=== PATIENT | female | born 1945 | race Caucasian/White ===

== ENCOUNTER → 2018-03-26 08:29 | Outpatient (CLI) | payer MEDICARE, OTHER, SELFPAY ==
[2018-03-26 09:44] LABS: Calcium 8.7 mg/dL (8.4-10.2); Cholesterol 170 mg/dL (140-199); Estimated Glomerular Filt Rate > 60.0 mL/min (>60); Glucose 100 mg/dL (80-110); HDL Cholesterol 54 mg/dL (40-60); HEMOLYSIS < 15 (0-50); LDL Cholesterol Calculated 101 mg/dL (<100); Potassium 4.3 mmol/L (3.4-5.1); Sodium 143 mmol/L (137-145); Triglycerides 76 mg/dL (35-150)
[2018-03-26 10:05] LABS: Thyroid Stimulating Hormone 0.57 uIU/mL (0.47-4.68)
== END ==
PROVIDERS: PCP Physician Assistant; Visit Provider Physician Assistant
DX: I10 Essential (primary) hypertension (principal); E03.9 Hypothyroidism, unspecified; E78.5 Hyperlipidemia, unspecified
CPT/HCPCS: 36415; 80048; 80061; 84443

== ENCOUNTER → 2018-09-07 07:36 | Outpatient (CLI) | payer MEDICARE, OTHER, SELFPAY ==
[2018-09-07 09:15] LABS: Alanine Aminotransferase 34 IU/L (9-52); BUN Creatinine Ratio 26.7 (6-22); Blood Urea Nitrogen 16 mg/dL (7-17); Calcium 8.8 mg/dL (8.4-10.2); Carbon Dioxide 27 mmol/L (22-32); Chloride 107 mmol/L (98-107); Cholesterol 204 mg/dL (140-199); Estimated Glomerular Filt Rate > 60.0 mL/min (>60); Glucose 100 mg/dL (80-110); HDL Cholesterol 53 mg/dL (40-60); HEMOLYSIS < 15 (0-50); LDL Cholesterol Calculated 128 mg/dL (<100); Potassium 3.8 mmol/L (3.4-5.1); Sodium 146 mmol/L (137-145); Triglycerides 116 mg/dL (35-150)
== END ==
PROVIDERS: Family Provider Physician Assistant; PCP Physician Assistant; Visit Provider Internal Medicine Interventional Cardiology
DX: E78.5 Hyperlipidemia, unspecified (principal)
CPT/HCPCS: 36415; 80048; 80061; 84460

== ENCOUNTER → 2018-09-09 12:50 | Outpatient (CLI) | payer MEDICARE, OTHER, SELFPAY | PROVIDERS: Family Provider Physician Assistant; PCP Physician Assistant; Visit Provider Physician Assistant | DX: Z13.88 Encounter for screening for disorder due to exposure to contaminants (principal) | CPT/HCPCS: 36415; 83655 ==

== ENCOUNTER → 2018-12-25 14:48 | Outpatient (CLI) | payer MEDICARE, OTHER, SELFPAY ==
--- NOTE | 2018-12-25 | DI.MRI.S_ITS ---
PROCEDURE: MR KNEE LT WO CON INDICATIONS: LATERAL MENISCUS TEAR. LATERAL LEFT KNEE PAIN TECHNIQUE: Noncontrast sagittal PD fast spin echo and T2 fast spin echo with fat saturation, sagittal 3-D FLASH with fat saturation; coronal T1 spin echo and PD fast spin echo with fat saturation, and axial PD fast spin echo with fat saturation through the knee. COMPARISON: None. FINDINGS: Image quality: Excellent. Menisci: Medial meniscal tear involving the undersurface of the posterior horn and body. There is partial extrusion. Truncation of the free margin of the body of the lateral meniscus. Cruciate ligaments: The anterior and posterior cruciate ligaments appear intact. Medial structures: The medial collateral ligament appears intact. The posterior oblique ligament, semimembranosus tendon insertions, oblique popliteal ligament, and meniscocapsular junction appear intact. Visualized portions of the pes anserinus tendons appear normal. No abnormal bursal fluid. Lateral structures: Age indeterminate thickening and intrasubstance signal change of the proximal lateral collateral ligament. The long and short heads of the biceps femoris tendon appear intact. The popliteus tendon appears normal; the popliteofibular ligament appears intact. The posterosuperior and anteroinferior popliteomeniscal fascicles appear intact. The arcuate and fabellofibular ligaments appear intact, on either side of the lateral inferior geniculate artery. Iliotibial band appears normal. Anterior structures: There is prepatellar and superficial infrapatellar subcutaneous edema. The quadriceps and patellar tendons appear intact. Patellar alignment is normal. No femoral trochlear dysplasia or ventral trochlear prominence. No edema in the infrapatellar fat pad. Bones and cartilage: No focal marrow contusion or discrete low signal fracture line. Within the medial compartment, low grade diffuse partial-thickness loss surface fraying of the femoral and tibial articular cartilage. Within the lateral compartment, there is intrasubstance change of the tibial cartilage without definite focal defect. Within the patellofemoral compartment, diffuse partial-thickness loss of the patellar and femoral trochlear cartilage with minimal underlying subchondral marrow signal changes of the lateral patellar facet. Joint space: Large joint effusion. Partially ruptured Huerta's cyst cyst is present measuring approximately 5 cm in a cephalocaudad dimension. There is also 8mm low signal loose body seen within the Huerta cyst on image 18 series 6. IMPRESSION: Medial meniscal tear involving undersurface of the posterior horn and body with partial extrusion. Prominent truncation of the free margin of the body of the lateral meniscus. Tricompartmental joint degeneration. Large joint effusion. Partially ruptured Huerta's cyst, which contains a subcentimeter loose body. Dictated by: Sen Zarco M.D. on 12/25/2018 at 15:57 Approved by: Sen Zarco M.D. on 12/25/2018 at 16:07
== END ==
PROVIDERS: PCP Physician Assistant; Visit Provider Orthopaedic Surgery
DX: M25.562 Pain in left knee (principal); S83.242A Other tear of medial meniscus, current injury, left knee, initial encounter; M17.12 Unilateral primary osteoarthritis, left knee; M71.22 Synovial cyst of popliteal space [Baker], left knee; M25.462 Effusion, left knee
CPT/HCPCS: 73721

== ENCOUNTER 2019-07-24 00:20 | Emergency (ER) | payer MEDICARE, OTHER, SELFPAY ==
--- NOTE | 2019-07-24 00:30 | DI.RAD.S_ITS ---
PROCEDURE: XR CHEST 1V INDICATIONS: Chest pain TECHNIQUE: One view of the chest was acquired. COMPARISON: None. FINDINGS: Surgical changes and devices: None. Lungs and pleura: Lungs are clear. No pleural effusions or pneumothorax. Mediastinum: Mediastinal contours appear normal. Heart size is normal. Bones and chest wall: No suspicious bony lesions. Overlying soft tissues appear unremarkable. IMPRESSION: Chest without acute cardiopulmonary abnormalities. Findings are concordant with the emergency room physician's preliminary report. Dictated by: Jorge Troy M.D. on 07/24/2019 at 5:49 Approved by: Jorge Troy M.D. on 07/24/2019 at 5:50
--- NOTE | 2019-07-24 00:31 | ED_ITS ---
HPI - General Adult General Chief complaint: Chest Pain Stated complaint: thinks she had heartattack Time Seen by Provider: 07/24/19 00:23 Source: patient Mode of arrival: Ambulatory Limitations: no limitations History of Present Illness HPI narrative: Patient is a 74-year-old female here for evaluation of left-sided chest pain and also left ear fullness. She also states that she was very anxious about her symptoms. She does have a history of anxiety. She states she had an extended preop workup today for cataract surgery. She did have her eyes dilated. Symptoms started earlier this evening. She states that she became very anxious about the symptoms concerned about her heart. She has never had a heart attack before. Stated that she had a normal stress echo approximately 4 years ago. Does have a history of high blood pressure and high cholesterol. Has not done anything for symptoms prior to arrival Related Data Home Medications Medication Instructions Recorded Confirmed venlafaxine [Effexor XR] 75 mg PO QDAY #0 11/20/16 atorvastatin [Lipitor] #0 12/29/17 Allergies Allergy/AdvReac Type Severity Reaction Status Date / Time No Known Drug Allergies Allergy Unknown Unverified 02/11/18 12:33 CAT DANDER Allergy Unknown Uncoded 02/11/18 12:33 DUST Allergy Unknown Uncoded 02/11/18 12:33 Review of Systems Constitutional Constitutional: Denies fever(s) and Denies headache(s) ENT Ears, Nose, Mouth, and Throat: Denies vertigo and Denies headache(s) Comments: Left ear fullness Cardiovascular Cardiovascular: Denies dyspnea Comments: Chest pressure Respiratory Respiratory: Denies dyspnea Gastrointestinal Gastrointestinal: Denies abdominal pain, Denies diarrhea, Denies nausea and De nies vomiting Genitourinary Genitourinary: Denies dysuria Musculoskeletal Musculoskeletal: Denies myalgias and Denies arthralgias Integumentary/Breasts Skin/Breast: Denies rash Neurologic Neurologic: Denies confusion, Denies vertigo and Denies headache(s) Psychiatric Psychiatric: Reports anxiety, Denies confusion and Reports panic attacks Hematologic/Lymphatic Hematologic/Lymphatic: Denies easy bleeding and Denies easy bruising [facility] Medical History Anxiety (Acute) Hyperlipidemia (Acute) Hypertension (Acute) Surgical History (Updated 03/03/18 @ 06:07 by Conversion Provider) Status post delivery Status post delivery Status post hysterectomy Family History (Updated 01/03/18 @ 00:00 by Conversion Provider) Brother Age: 66 Melanoma Father Hypertension High cholesterol Melanoma Social History Smoking Status: Never smoker Family History (Updated 01/03/18 @ 00:00 by Conversion Provider) Brother Age: 66 Melanoma Father Hypertension High cholesterol Melanoma Social History Smoking Status: Never smoker Exam Initial Vital Signs Initial Vital Signs: Vital Signs Temperature 98.2 F 07/24/19 00:38 Pulse Rate 70 07/24/19 00:38 Respiratory Rate 16 07/24/19 00:38 Blood Pressure 183/106 H 07/24/19 00:38 Pulse Oximetry 94 07/24/19 00:38 Const General: cooperative, healthy appearing, comfortable, well developed, well groomed and No acute distress Orientation: alert, awake and oriented x3 HENMT Head: normal to inspection and normocephalic Ears: TM's normal bilaterally Nose: external nose normal Resp Effort & Inspection: normal respiratory effort Auscultation: clear to auscultation bilaterally Cardio Rate: regular rate Rhythm: regular rhythm Pulses: radial pulses present GI Inspection: non-distended Palpation: soft and No firm Skin Lesions: no lesions Rashes: no rashes Neuro General: alert, awake and oriented x3 Cognition: normal cognition Speech: speech normal Extrem General: normal to inspection and capillary refill normal Psych Appearance: grossly normal and well kempt Scores GCS [place] coma scale eye opening: Spontaneous [place] coma scale verbal response: Orientated Mirna coma scale motor response: Obey commands [place] coma scale total score: 15 HEART Score Heart Score history: Slightly Suspicious Heart Score EKG: Non-Specific repolarization disturbance Heart Score Age: > or = 65 years old Heart Score risk factors: 1-2 risk factors Heart Score troponin: < or = to normal limit Heart Score Total: 4 Course Orders Ordered: ED Orders 07/24/19 00:29 EKG-12 Lead Stat 07/24/19 00:30 XR chest 1V Stat 07/24/19 00:35 Basic Metabolic Panel Stat Complete Blood Count AUTO DIFF Stat Lipase Stat Partial Thromboplastin Time Stat Prothrombin Time INR Stat Troponin I Stat 07/24/19 02:26 Troponin I Stat Vital Signs Vital signs: Vital Signs - 8 hr 07/24/19 00:38 07/24/19 01:00 07/24/19 01:45 Temperature 98.2 F Pulse Rate 70 68 70 Respiratory Rate 16 18 16 Blood Pressure 183/106 H Blood Pressure [Left Arm] 148/80 H 134/72 Pulse Oximetry 94 98 07/24/19 04:00 Temperature Pulse Rate 70 Respiratory Rate 16 Blood Pressure Blood Pressure [Left Arm] 134/63 Pulse Oximetry 99 Medical Decision Making Lab Data Lab results reviewed: Yes I reviewed the patient's lab results. Result diagrams: 07/24/19 00:35 07/24/19 00:35 Labs: Lab Results 07/24/19 07/24/19 07/24/19 Range/Units 00:35 00:35 00:35 WBC 5.5 (4.5-11.0) X10^3/uL RBC 4.47 (4.0-5.2) X10^6/uL Hgb 13.7 (12.0-16.0) g/dL Hct 40.4 (36-46) % MCV 90.4 (80-100) fL MCH 30.6 (26-34) PG MCHC 33.9 (30-36) % RDW 14.0 (11.6-14.8) % Plt Count 208 (150-400) X10^3/uL Neut % (Auto) 40.6 L (50-75) % Lymph % (Auto) 43.1 H (25-40) % Wells % (Auto) 11.8 (3-14) % Eos % (Auto) 3.1 (2-4) % Baso % (Auto) 1.4 (0-2) % Neut # (Auto) 2200 (3895-9569) /uL Lymph # (Auto) 2400 (3297-0621) /uL Wells # (Auto) 600 (0-900) /uL Eos # (Auto) 200 (0-450) /uL Baso # (Auto) 100 (0-100) /uL PT 11.0 (10.1-12.7) SECONDS INR 1.0 (0.9-1.3) APTT 34 (26.4-36.2) SECONDS Sodium 143 (137-145) mmol/L Potassium 3.8 (3.4-5.1) mmol/L Chloride 104 (98-107) mmol/L Carbon Dioxide 31 (22-32) mmol/L BUN 14 (7-17) mg/dL Creatinine 0.60 (0.52-1.04) mg/dL Estimated GFR > 60.0 (>60) mL/min BUN/Creatinine Ratio 23.3 H (6-22) Glucose 121 H (80-110) mg/dL Calcium 9.6 (8.4-10.2) mg/dL Troponin I (0.01-0.034) ng/mL Lipase 138 (23-300) U/L 07/24/19 07/24/19 Range/Units 00:35 02:26 WBC (4.5-11.0) X10^3/uL RBC (4.0-5.2) X10^6/uL Hgb (12.0-16.0) g/dL Hct (36-46) % MCV (80-100) fL MCH (26-34) PG MCHC (30-36) % RDW (11.6-14.8) % Plt Count (150-400) X10^3/uL Neut % (Auto) (50-75) % Lymph % (Auto) (25-40) % Wells % (Auto) (3-14) % Eos % (Auto) (2-4) % Baso % (Auto) (0-2) % Neut # (Auto) (4406-4989) /uL Lymph # (Auto) (7044-1755) /uL Wells # (Auto) (0-900) /uL Eos # (Auto) (0-450) /uL Baso # (Auto) (0-100) /uL PT (10.1-12.7) SECONDS INR (0.9-1.3) APTT (26.4-36.2) SECONDS Sodium (137-145) mmol/L Potassium (3.4-5.1) mmol/L Chloride (98-107) mmol/L Carbon Dioxide (22-32) mmol/L BUN (7-17) mg/dL Creatinine (0.52-1.04) mg/dL Estimated GFR (>60) mL/min BUN/Creatinine Ratio (6-22) Glucose (80-110) mg/dL Calcium (8.4-10.2) mg/dL Troponin I < 0.012 < 0.012 (0.01-0.034) ng/mL Lipase (23-300) U/L Imaging Data Chest x-ray: Attestation: I personally reviewed and interpreted this imaging study as follows: My impression: No pneumonia, normal size heart, no pneumothorax ECG Data Attestation: I personally reviewed and interpreted this ECG as follows: Prior ECG tracings: not available for review Interpretation: Sinus rhythm Normal axis Ventricular rate is [address] T wave changes MDM Narrative Medical decision making narrative: Patient does have a heart score for however has a nonspecific EKG and negative troponins x2. She had complete resolution in her symptoms after she arrived here. States she feels much calmer after arriving here. Patient does have a high suspicion that her symptoms were anxiety related. I agree with this as well. Chest x-ray is unremarkable. When the patient contact her primary doctor and also her sales representative [employer] for follow-up. She was given return precautions and follow-up instructions. She expressed understanding and agreement with plan. Discharge Plan Departure Patient Disposition: Home Clinical Impression: Atypical chest pain Discharge Date/Time: 07/24/19 04:01 Instructions: DI for Atypical Chest Pain Activity Restrictions/Additional Instructions: On Friday contact your sales representative [employer] to discuss the recommendation from Ophthalmology to have carotid Dopplers. I also recommend you discuss the indications for having a stress test. Continue all of your medications as directed. Return to the emergency department for any new or worsening symptoms Prescriptions: No Action venlafaxine [Effexor XR] 75 MG capsule,extended release 24hr 75 mg PO QDAY Qty: 0 RF: 0 atorvastatin [Lipitor] 20 MG tablet Qty: 0 RF: 0 Referrals: Ana Lilia Carrera PA-C [Primary Care Provider] -
[2019-07-24 00:38] VITALS: BP 183/106; PULSE 70; RESP 16; TEMP 36.8; O2SAT 94; BMI 28.3
[2019-07-24 00:45] LABS: Add Manual Diff / Slide Review NO; Basophils Absolute Auto 100 /uL (0-100); Basophils Percent Auto 1.4 % (0-2); Eosinophils Absolute Auto 200 /uL (0-450); Eosinophils Percent Auto 3.1 % (2-4); Hematocrit 40.4 % (36-46); Hemoglobin 13.7 g/dL (12.0-16.0); Lymphocytes Absolute Auto 2400 /uL (1100-4500); Lymphocytes Percent Auto 43.1 % (25-40); Mean Corpuscular HGB Conc 33.9 % (30-36); Mean Corpuscular Hemoglobin 30.6 PG (26-34); Mean Corpuscular Volume 90.4 fL (80-100); Monocytes Absolute Auto 600 /uL (0-900); Monocytes Percent Auto 11.8 % (3-14); Neutrophils Absolute Auto 2200 /uL (1500-7000); Neutrophils Percent Auto 40.6 % (50-75); Platelet Count 208 X10^3/uL (150-400); Red Blood Cell Count 4.47 X10^6/uL (4.0-5.2); White Blood Cell Count 5.5 X10^3/uL (4.5-11.0)
[2019-07-24 00:51] LABS: PTT Partial Thromboplastin Tim 34 SECONDS (26.4-36.2)
[2019-07-24 00:53] LABS: BUN Creatinine Ratio 23.3 (6-22); Blood Urea Nitrogen 14 mg/dL (7-17); Calcium 9.6 mg/dL (8.4-10.2); Carbon Dioxide 31 mmol/L (22-32); Chloride 104 mmol/L (98-107); Estimated Glomerular Filt Rate > 60.0 mL/min (>60); Glucose 121 mg/dL (80-110); HEMOLYSIS < 15 (0-50); Lipase 138 U/L (23-300); Potassium 3.8 mmol/L (3.4-5.1); Sodium 143 mmol/L (137-145)
[2019-07-24 01:00] VITALS: BP 148/80; PULSE 68; RESP 18; O2SAT 98
[2019-07-24 01:16] LABS: Troponin I < 0.012 ng/mL (0.01-0.034)
[2019-07-24 01:45] VITALS: BP 134/72; PULSE 70; RESP 16
[2019-07-24 02:56] LABS: Troponin I < 0.012 ng/mL (0.01-0.034)
[2019-07-24 04:00] VITALS: BP 134/63; PULSE 70; RESP 16; O2SAT 99
== END 2019-07-24 04:01 | disposition home or self-care (01) ==
PROVIDERS: Emergency Provider Emergency Medicine; PCP Physician Assistant
DX: R07.89 Other chest pain (principal)
CPT/HCPCS: 36415; 36591; 71045; 80048; 83690; 84484; 85025; 85610; 85730; 93005; 99283; 99285

== ENCOUNTER 2019-08-04 07:51 | Day surgery (SDC) | payer MEDICARE, OTHER, SELFPAY ==
--- NOTE | 2019-07-31 13:39 | PM.PREOP ---
Pre-operative Note Interval Note History & Physical reviewed/Exam performed by Physician: Yes Changes to H&P: No
--- NOTE | 2019-07-31 13:39 | PM.OP.1 ---
Operative Date/Time/Diagnoses Date of procedure: 08/04/19 Time of procedure: 08:45 Procedure & Clinicians Procedure: Preoperative diagnoses: 1. Right nuclear sclerotic and cortical cataract. 2. Aortic aneurysm 3. Hypertension 4. Previous retinal hemorrhages. Postoperative diagnoses: 1. Cataract removed by phacoemulsification with placement of posterior chamber intraocular lens. Procedure: Phacoemulsification with posterior chamber intraocular lens implant Surgeon: Veronica Lee MD Complications: None Specimen: None Implant: ZCBOO+23.5 Blood loss: None Anesthesia: Retrobulbar with monitored standby Description of procedure: Patient presents with a complaint of decreased vision due to cataract which is affecting activities of daily living. She is having trouble driving at night and seeing street signs. Her medical conditions are currently stable. The patient wants surgery to improve vision. The patient was taken to the operating room and given IV sedation. A retrobulbar block consisting of 6 cc of 2% xylocaine without epinephrine mixed half and half with 0.5% Marcaine with 1 cc of hyaluronidase added is placed between the medial and lateral 1/3 of the inferior orbital rim. The eye is manually massaged for 30 sec, prepped using Betadine solution, and draped in the usual sterile fashion. Temporal approach was made, a 1 mm side-port incision was made 90? from the proposed clear corneal incision position. Phenylephrine 1.5% mixed with 1% xylocaine 0.2 cc was placed into the anterior chamber. Viscoat followed by Ruddyon was then placed. A 2.6 mm clear incision with a 2.6 mm blade was placed. A 360 degree capsulorrhexis style capsulotomy was then performed with a cystitome needle on a Healon. Hydrodelineation and hydrodissection were performed. The phacoemulsification unit is introduced, and sculpting notice used to groove the central lens. It is then removed in chopping mode. Epi nucleus is removed with epinuclear mode and irrigation aspiration was used to remove the peripheral cortex. The posterior capsule is polished. The intraocular lens is selected, inspected, power confirmed, and placed in the posterior chamber. The wound was stromally hydrated and tested for leaks, there was none and it was left sutureless. Vigamox 0.1 cc was placed into the anterior chamber. Kenalog 0.2 cc was placed in the superior subconjunctival space. A drop of antibiotic and was placed and the eye was patched and shielded. The patient was stable and returned to the recovery room in excellent condition. Dictated by: Veronica Lee MD Copy to: [facility]
[2019-08-04 08:10] VITALS: BP 139/76; PULSE 68; RESP 16; TEMP 36.3; O2SAT 96
[2019-08-04 08:12] VITALS: BMI 28.5
[2019-08-04] MEDS: PROPARACAINE 0.5% OPHTH SOL 2 DROPS EYE-OP (08:19)
[2019-08-04] MEDS: CATARACT EYE COMPOUND (10 DROPS/SYRINGE) 3 DROPS EYE-OP (08:20)
[2019-08-04] MEDS: PHENYLEPHRINE/LIDOCAINE VIAL (OR) 0.2 ML EYE-OP (09:10)
[2019-08-04] MEDS: MOXIFLOXACIN INJ 5 MG/ML VIAL EYE-OP (09:11)
[2019-08-04] MEDS: CHONDROIDTIN/SOD HYALURONATE 1.05 ML SYRINGE INTRAOCULA (09:12)
[2019-08-04] MEDS: TRIAMCINOLONE 50 MG/5 ML VIAL INJ (09:12)
[2019-08-04] MEDS: HYALURONATE SODIUM 10 MG/ML SYRINGE INJ (09:13)
[2019-08-04] MEDS: BALANCED SALT IRRIG SOLN NO.2 15 ML IRR (09:13)
[2019-08-04] MEDS: BALANCED SALT IRRIG SOLN NO.2 500 ML, EPINEPHrine 1 MG IRR (09:14)
[2019-08-04] MEDS: LIDOCAINE 2% 4 ML, BUPIVACAINE 0.5% (PF) 4 ML, HYALURONIDASE 150 UNIT INJ (09:15)
[2019-08-04] MEDS: ERYTHROMYCIN OPHTH 1 GM OINT 1 APPLIC EYE-RIGHT (09:17)
[2019-08-04 09:32] VITALS: BP 136/86; PULSE 62; RESP 16; TEMP 36.3; O2SAT 94
== END 2019-08-04 09:46 | disposition home or self-care (01) ==
LOC: OR 07:56
PROVIDERS: Family Provider Physician Assistant; PCP Physician Assistant; Visit Provider Ophthalmology
PROC: (CPT 66984; principal; 2019-08-04 08:45)
DX: H25.811 Combined forms of age-related cataract, right eye (principal); I10 Essential (primary) hypertension
CPT/HCPCS: 66984; J0171; J2704; J3301; J3470

== ENCOUNTER 2019-08-25 07:58 | Day surgery (SDC) | payer MEDICARE, OTHER, SELFPAY ==
--- NOTE | 2019-08-24 18:53 | PM.PREOP ---
Pre-operative Note Interval Note History & Physical reviewed/Exam performed by Physician: Yes Changes to H&P: No
--- NOTE | 2019-08-24 18:54 | PM.OP.1 ---
Operative Date/Time/Diagnoses Date of procedure: 08/25/19 Time of procedure: 08:45 Procedure & Clinicians Procedure: Preoperative diagnoses: 1. Left nuclear sclerotic and cortical cataract. 2. Aortic valve regurgitation. 3. Aortic aneurysm history. 4. Hypertension 5. Hypothyroidism. Postoperative diagnoses: 1. Cataract removed by phacoemulsification with placement of posterior chamber intraocular lens. Procedure: Phacoemulsification with posterior chamber intraocular lens implant Surgeon: Veronica Lee MD Complications: None Specimen: None Implant: ZCBOO+24.0 Blood loss: None Anesthesia: Retrobulbar with monitored standby Description of procedure: Patient presents with a complaint of decreased vision due to cataract which is affecting activities of daily living. She continues to have trouble with night driving and seeing street signs. The patient wants surgery to improve vision. The patient was taken to the operating room and given IV sedation. A retrobulbar block consisting of 6 cc of 2% xylocaine without epinephrine mixed half and half with 0.5% Marcaine with 1 cc of hyaluronidase added is placed between the medial and lateral 1/3 of the inferior orbital rim. The eye is manually massaged for 30 sec, prepped using Betadine solution, and draped in the usual sterile fashion. She had mild discomfort with the lid speculum and therefore lidocaine jelly was placed on the surface of the eye and procedure otherwise continued as planned. Temporal approach was made, a 1 mm side-port incision was made 90? from the proposed clear corneal incision position. Phenylephrine 1.5% mixed with 1% xylocaine 0.2 cc was placed into the anterior chamber. Viscoat followed by Kylee was then placed. A 2.6 mm clear incision with a 2.6 mm blade was placed. A 360 degree capsulorrhexis style capsulotomy was then performed with a cystitome needle on a Healon. Hydrodelineation and hydrodissection were performed. The phacoemulsification unit is introduced, and sculpting notice used to groove the central lens. It is then removed in chopping mode. Epi nucleus is removed with epinuclear mode and irrigation aspiration was used to remove the peripheral cortex. The posterior capsule is polished. The intraocular lens is selected, inspected, power confirmed, and placed in the posterior chamber. The wound was stromally hydrated and tested for leaks, there was none and it was left sutureless. Vigamox 0.1 cc was placed into the anterior chamber. Kenalog 0.2 cc was placed in the superior subconjunctival space. A drop of antibiotic and was placed and the eye was patched and shielded. The patient was stable and returned to the recovery room in excellent condition. Dictated by: Veronica Lee MD Copy to: [facility]
[2019-08-25] MEDS: PROPARACAINE 0.5% OPHTH SOL 2 DROPS EYE-OP (08:16)
[2019-08-25] MEDS: CATARACT EYE COMPOUND (10 DROPS/SYRINGE) 3 DROPS EYE-OP (08:18)
[2019-08-25 08:21] VITALS: BP 138/82; PULSE 681; RESP 15; TEMP 36.7; O2SAT 98; BMI 29.2
--- NOTE | 2019-08-25 08:34 | SUR.OPER ---
Supine on eye stretcher, head on extension cradle secured with tape. Arms tucked at sides with blanket. Pillow under knees.
[2019-08-25] MEDS: LIDOCAINE JELLY 2% 5 ML 1 APPLIC TOP (09:24)
[2019-08-25] MEDS: PHENYLEPHRINE/LIDOCAINE VIAL (OR) 0.2 ML EYE-OP (09:25)
[2019-08-25] MEDS: LIDOCAINE 2% 4 ML, BUPIVACAINE 0.5% (PF) 4 ML, HYALURONIDASE 150 UNIT INJ (09:26)
[2019-08-25] MEDS: TRIAMCINOLONE 50 MG/5 ML VIAL INJ (09:28)
[2019-08-25] MEDS: MOXIFLOXACIN INJ 5 MG/ML VIAL EYE-OP (09:28)
[2019-08-25] MEDS: CHONDROIDTIN/SOD HYALURONATE 1.05 ML SYRINGE INTRAOCULA (09:29)
[2019-08-25] MEDS: HYALURONATE SODIUM 10 MG/ML SYRINGE INJ (09:29)
[2019-08-25] MEDS: BALANCED SALT IRRIG SOLN NO.2 500 ML, EPINEPHrine 1 MG IRR (09:30)
[2019-08-25 09:45] VITALS: BP 143/83; PULSE 69; RESP 15; TEMP 36.2; O2SAT 93
== END 2019-08-25 10:00 | disposition home or self-care (01) ==
PROVIDERS: Family Provider Physician Assistant; PCP Physician Assistant; Visit Provider Ophthalmology
PROC: (CPT 66984; principal; 2019-08-25 08:45)
DX: H25.812 Combined forms of age-related cataract, left eye (principal); I10 Essential (primary) hypertension; E03.9 Hypothyroidism, unspecified
CPT/HCPCS: 66984; J0171; J3010; J3301; J3470

== ENCOUNTER → 2019-09-03 14:45 | Outpatient (CLI) | payer MEDICARE, OTHER, SELFPAY ==
--- NOTE | 2019-09-03 | DI.ECHO.S_ITS ---
[facility]---------+ [facility] +---------+ : : [address] : : : : [id number] : : : : Phone: [phone] Echocardiogram Report + + :Name: KAUSHAL QUINN Study Date: 09/03/2019 Height: 63 in : :[facility] Weight: 167 lb : : Gender: Female BSA: 1.8 m2 : :: 1945 Age: 74 yrs BP: 158/80 mmHg: :Reason For Study: Aortic, Ascending Aneurysm : : Performed By: Saige Stauffer : :Referring: JAYE MOTA : + + Interpretation Summary Borderline concentric left ventricular hypertrophy with ejection fraction 60- 65%. Grade I diastolic dysfunction. Mildly dilated left atrium. Mild aortic regurgitation. Mild tricuspid regurgitation. The aortic root is moderately dilated (4.2 cm). The ascending aorta is mildly enlarged (4.2 cm). Comparison is made with the echocardiogram of 09-08-17, there has been no significant change. Procedure: A two-dimensional transthoracic echocardiogram with color flow and Doppler was performed. The study quality was technically adequate. Comparison is made with the echocardiogram of 09-08-17. The patient was in normal sinus rhythm during the exam. Left Ventricle: There is borderline concentric left ventricular hypertrophy. The ejection fraction is estimated to be 60-65%. There are no focal wall motion abnormalities. Diastolic parameters suggest a relaxation abnormality of the left ventricle, consistent with probable normal filling pressures. Right Ventricle: The right ventricle grossly appears normal in size with probable normal systolic function. Atria: The left atrium is mildly dilated. Right atrial size is normal. The interatrial septum is intact with no evidence for an atrial septal defect. Mitral Valve: The mitral valve is normal in structure and function. There is trace mitral regurgitation. Aortic Valve: The aortic valve is trileaflet. The aortic valve opens well. There is mild aortic regurgitation. Tricuspid Valve: The tricuspid valve leaflets are thin and pliable. There is mild tricuspid regurgitation. The right ventricular systolic pressure is estimated to be at least 26 mmHg based on an estimated right atrial pressure of 3 mm Hg. Pulmonic Valve: The pulmonic valve is not well seen, but is grossly normal. There is trace pulmonic regurgitation. Great Vessels: The aortic root is moderately dilated. The ascending aorta is mildly enlarged. The aortic arch is normal in size. The IVC is of normal diameter and collapses greater than 50% with a sniff. This suggests a low right atrial pressure of 3 mm Hg. Pericardium/ Pleura There is no pericardial effusion. There is no pleural effusion. MMode/2D Measurements & Calculations LVIDd: 5.0 cm Ao root diam: 4.2 cm LVIDs: 2.6 cm Aortic Jxn: 3.2 cm FS: 48.2 % asc Aorta Diam: 4.0 cm EPSS: 0.78 cm Ao Arch Diam (Prox Trans): 3.0 cm IVSd: 1.1 cm LVPWd: 0.91 cm LV english. diameter/BSA (cm/m^2): 2.8 LV sys. diameter/BSA (cm/m^2): 1.4 LA dimension: 3.6 cm RA long axis: 4.6 cm LA A2 area: 24.8 cm2 RA area: 13.1 cm2 LA A4 area: 20.2 cm2 RA vol: 31.8 ml LA length (vol): 5.4 cm RA : 17.7 ml/m2 LA vol: 78.3 ml IVC diam: 1.6 cm LA vol index: 43.7 ml/m2 RVDd major: 5.8 cm RVD1 (basal): 2.7 cm RVD2 (mid): 2.3 cm Doppler Measurements & Calculations Ao V2 max: 148.8 cm/sec MV E max emanuel: 61.6 cm/sec Ao V2 mean: 97.9 cm/sec MV A max emanuel: 77.5 cm/sec Ao max P.9 mmHg MV E/A: 0.80 Ao mean P.4 mmHg Med Peak E' Emanuel: 2.7 cm/sec Ao V2 VTI: 31.5 cm E/E' med: 22.5 Lat Peak E' Emanuel: 2.7 cm/sec E/E' lat: 22.5 E/e' average: 22.5 MV dec time: 0.26 sec MV P1/2t: 76.4 msec TR max emanuel: 240.7 cm/sec MV P1/2t max emanuel: 62.3 cm/sec TR max P.2 mmHg MVA(P1/2t): 2.9 cm2 PA V2 max: 66.3 cm/sec PA V2 mean: 45.5 cm/sec PA mean P.97 mmHg PA Accel Time: 0.23 sec Electronically signed by: Jaye Hernandez on Reading Physician:09/06/2019 03:36 PM
== END ==
PROVIDERS: Family Provider Physician Assistant; PCP Physician Assistant; Visit Provider Internal Medicine Interventional Cardiology
DX: I08.2 Rheumatic disorders of both aortic and tricuspid valves (principal); I77.810 Thoracic aortic ectasia
CPT/HCPCS: 93306

== ENCOUNTER → 2019-09-09 07:38 | Outpatient (CLI) | payer MEDICARE, OTHER, SELFPAY ==
[2019-09-09 08:35] LABS: BUN Creatinine Ratio 18.6 (6-22); Blood Urea Nitrogen 13 mg/dL (7-17); Calcium 9.5 mg/dL (8.4-10.2); Carbon Dioxide 31 mmol/L (22-32); Chloride 103 mmol/L (98-107); Cholesterol 192 mg/dL (140-199); Estimated Glomerular Filt Rate > 60.0 mL/min (>60); Glucose 94 mg/dL (80-110); HDL Cholesterol 50 mg/dL (40-60); HEMOLYSIS < 15 (0-50); LDL Cholesterol Calculated 108 mg/dL (<100); Potassium 4.1 mmol/L (3.4-5.1); Sodium 140 mmol/L (137-145); Triglycerides 171 mg/dL (35-150)
== END ==
PROVIDERS: PCP Physician Assistant; Visit Provider Internal Medicine Interventional Cardiology
DX: E78.5 Hyperlipidemia, unspecified (principal); I10 Essential (primary) hypertension
CPT/HCPCS: 36415; 80048; 80061

== ENCOUNTER → 2019-09-28 14:13 | Outpatient (CLI) | payer MEDICARE, OTHER, SELFPAY ==
--- NOTE | 2019-09-28 | DI.US.S_ITS ---
PROCEDURE: US CAROTID DOPPLER BI INDICATIONS: RIGHT CAROTID BRUIT TECHNIQUE: Color and pulse Doppler interrogation was performed of both carotid systems, with image documentation and velocity measurements. COMPARISON: None. FINDINGS: Stenosis calculations are based on SRU (Society of Radiologists in Ultrasound) criteria. Right side: Brachial blood pressure: 160/91 mm Hg. Common carotid artery peak systolic velocity: 78 cm/sec. Internal carotid artery peak systolic velocity: 83 cm/sec. Internal carotid artery end diastolic velocity: 23 cm/sec. External carotid artery peak systolic velocity: 79 cm/sec. ICA/CCA peak systolic ratio: 1.1. Rodriguez scale imaging description: Mild scattered plaque. Percent internal carotid artery stenosis: Less than 50%. Vertebral artery: Flow direction is antegrade. Left side: Brachial blood pressure: 145/88 mm Hg. Common carotid artery peak systolic velocity: 95 cm/sec. Internal carotid artery peak systolic velocity: 73 cm/sec. Internal carotid artery end diastolic velocity: 27 cm/sec. External carotid artery peak systolic velocity: 67 cm/sec. ICA/CCA peak systolic ratio: 0.8. Rodriguez scale imaging description: Mild scattered plaque. Percent internal carotid artery stenosis: Less than 50%. Vertebral artery: Flow direction is antegrade. IMPRESSION: 1. Less than 50% bilateral internal carotid artery stenosis. 2. Hypertension at time of exam. Dictated by: Blaze Bledsoe [facility] Interpreted: Patti Barksdale MD on 09/28/2019 at 15:50 Approved by: Patti Barksdale MD, PhD on 09/28/2019 at 16:21
== END ==
PROVIDERS: Family Provider Ophthalmology; PCP Physician Assistant; Visit Provider Internal Medicine Interventional Cardiology
DX: I65.23 Occlusion and stenosis of bilateral carotid arteries (principal); R09.89 Other specified symptoms and signs involving the circulatory and respiratory systems; R03.0 Elevated blood-pressure reading, without diagnosis of hypertension
CPT/HCPCS: 93880

== ENCOUNTER → 2020-10-04 07:57 | Outpatient (CLI) | payer MEDICARE, OTHER, SELFPAY ==
[2020-10-04 09:00] LABS: Blood Urea Nitrogen 17 mg/dL (7-17); Calcium 8.9 mg/dL (8.4-10.2); Carbon Dioxide 31 mmol/L (22-32); Chloride 107 mmol/L (98-107); Cholesterol 192 mg/dL (140-199); Estimated Glomerular Filt Rate > 60.0 mL/min (>60); Glucose 99 mg/dL (80-110); HDL Cholesterol 51 mg/dL (40-60); HEMOLYSIS < 15 (0-50); LDL Cholesterol Calculated 111 mg/dL (<100); Sodium 140 mmol/L (137-145); Triglycerides 151 mg/dL (35-150)
== END ==
PROVIDERS: Family Provider Ophthalmology; PCP Physician Assistant; Referring Provider Internal Medicine Interventional Cardiology; Visit Provider Internal Medicine Interventional Cardiology
DX: E78.5 Hyperlipidemia, unspecified (principal); I77.810 Thoracic aortic ectasia
CPT/HCPCS: 36415; 80048; 80061

== ENCOUNTER → 2021-02-06 12:13 | Outpatient (CLI) | payer MEDICARE, OTHER, SELFPAY ==
[2021-02-06 12:51] LABS: Add Manual Diff / Slide Review NO; Basophils Absolute Auto 100 /uL (0-100); Basophils Percent Auto 1.6 % (0-2); Eosinophils Absolute Auto 200 /uL (0-450); Eosinophils Percent Auto 4.3 % (2-4); Hematocrit 39.5 % (36-46); Hemoglobin 13.1 g/dL (12.0-16.0); Lymphocytes Absolute Auto 1800 /uL (1100-4500); Lymphocytes Percent Auto 38.3 % (25-40); Mean Corpuscular HGB Conc 33.1 % (30-36); Mean Corpuscular Hemoglobin 30.1 PG (26-34); Mean Corpuscular Volume 90.9 fL (80-100); Monocytes Absolute Auto 500 /uL (0-900); Monocytes Percent Auto 10.2 % (3-14); Neutrophils Absolute Auto 2100 /uL (1500-7000); Neutrophils Percent Auto 45.6 % (50-75); Platelet Count 208 X10^3/uL (150-400); Red Blood Cell Count 4.35 X10^6/uL (4.0-5.2); Red Cell Distribution Width 13.2 % (11.6-14.8); White Blood Cell Count 4.7 X10^3/uL (4.5-11.0)
[2021-02-06 13:43] LABS: Alanine Aminotransferase 28 IU/L (<35); Albumin 4.1 g/dL (3.5-5.0); Albumin Globulin Ratio 1.6 (1.0-2.8); Alkaline Phosphatase 57 U/L (38-126); Aspartate Aminotransferase 27 IU/L (14-36); BUN Creatinine Ratio 23.3 (6-22); Bilirubin Total 0.2 mg/dL (0.2-1.3); Blood Urea Nitrogen 14 mg/dL (7-17); Calcium 9.3 mg/dL (8.4-10.2); Carbon Dioxide 28 mmol/L (22-32); Chloride 106 mmol/L (98-107); Estimated Glomerular Filt Rate > 60.0 mL/min (>60); Globulin 2.5 g/dL (1.7-4.1); Glucose 83 mg/dL (80-110); HEMOLYSIS < 15 (0-50); Potassium 4.2 mmol/L (3.4-5.1); Sodium 141 mmol/L (137-145); Total Protein 6.6 g/dL (6.3-8.2)
[2021-02-06 20:36] LABS: TSH w/ Reflex to FT4 0.05 uIU/mL (0.47-4.68)
[2021-02-06 21:44] LABS: Free T4, Direct Thyroxine 1.28 ng/dL (0.78-2.19)
== END ==
PROVIDERS: Family Provider Ophthalmology; PCP Physician Assistant; Referring Provider Physician Assistant; Visit Provider Physician Assistant
DX: I10 Essential (primary) hypertension (principal); E78.2 Mixed hyperlipidemia; E03.9 Hypothyroidism, unspecified
CPT/HCPCS: 36415; 80053; 84439; 84443; 85025

== ENCOUNTER → 2021-05-05 11:58 | Outpatient (CLI) | payer MEDICARE, OTHER, SELFPAY ==
[2021-05-05 13:15] LABS: Thyroid Stimulating Hormone 0.167 uIU/mL (0.47-4.68)
== END ==
PROVIDERS: Family Provider Ophthalmology; PCP Physician Assistant; Referring Provider Physician Assistant; Visit Provider Physician Assistant
DX: I10 Essential (primary) hypertension (principal)
CPT/HCPCS: 36415; 84443

== ENCOUNTER → 2021-12-20 15:14 | Outpatient (CLI) | payer MEDICARE, OTHER, SELFPAY ==
[2021-12-20 17:06] LABS: COVID19 -Nasal RAPID Negative (Negative)
== END ==
PROVIDERS: Family Provider Ophthalmology; PCP Physician Assistant; Visit Provider Family Medicine Sleep Medicine
DX: Z20.822 Contact with and (suspected) exposure to COVID-19 (principal)
CPT/HCPCS: 87635; C9803

== ENCOUNTER → 2021-12-21 15:02 | Outpatient (CLI) | payer MEDICARE, OTHER, SELFPAY ==
--- NOTE | 2021-12-24 17:43 | DI.NM.S_ITS ---
DATE OF SERVICE: 12/21/2021 PROCEDURE: Exercise stress test. INDICATION: Shortness of breath, hypertension and hyperlipidemia. CARDIAC STRESS: The patient underwent exercise stress test under the supervision of an attending staff using standard Ezequiel protocol. The patient walked on Ezequiel protocol for 4 minutes and 43 seconds, achieved maximum heart rate of 149, which was 103 percent of target heart rate. There was a hypertensive blood pressure response. Baseline blood pressure 140/90 mmHg. Peak blood pressure 208/100 mmHg. TAMIKO positive 18 percent. The patient achieved 7 METs of workload. No anginal symptoms. Baseline rhythm was sinus. During stress, no convincing ischemic changes seen or significant arrhythmia seen. CONCLUSION: Exercise stress test is negative for inducible ischemia. Mildly hypertensive blood pressure response. Diminished exercise tolerance. TAMIKO positive 18 percent. No chest pain or anginal symptoms. However, patient had shortness of breath during exertion. No significant arrhythmias or ischemic changes. Overall low-risk exercise stress test. Danelle Grossman - HOWARD/eva/jewell doc#: [id number]/job#: [id number] dd: 12/24/2021 13:02:00 dt: 12/24/2021 17:23:00 DICTATING /COPIES TO: Ronnie Wagner MD COPIES MNE: AN;
== END ==
PROVIDERS: Family Provider Ophthalmology; PCP Physician Assistant; Referring Provider Internal Medicine Interventional Cardiology; Visit Provider Internal Medicine Interventional Cardiology
DX: R06.00 Dyspnea, unspecified (principal); I10 Essential (primary) hypertension; E78.5 Hyperlipidemia, unspecified
CPT/HCPCS: 93017

== ENCOUNTER → 2021-12-29 08:28 | Outpatient (CLI) | payer MEDICARE, OTHER, SELFPAY ==
[2021-12-29 09:16] LABS: BUN Creatinine Ratio 29.5 (6-22); Blood Urea Nitrogen 18 mg/dL (7-17); Calcium 9.1 mg/dL (8.4-10.2); Carbon Dioxide 29 mmol/L (22-32); Chloride 108 mmol/L (98-107); Cholesterol 209 mg/dL (140-199); Estimated Glomerular Filt Rate > 60.0 mL/min (>60); Glucose 98 mg/dL (80-110); HDL Cholesterol 54 mg/dL (40-60); HEMOLYSIS < 15 (0-50); LDL Cholesterol Calculated 124 mg/dL (<100); Potassium 4.1 mmol/L (3.4-5.1); Sodium 143 mmol/L (137-145); Triglycerides 155 mg/dL (35-150)
== END ==
PROVIDERS: Family Provider Ophthalmology; PCP Physician Assistant; Referring Provider Internal Medicine Interventional Cardiology; Visit Provider Internal Medicine Interventional Cardiology
DX: I10 Essential (primary) hypertension (principal); I77.810 Thoracic aortic ectasia; E78.5 Hyperlipidemia, unspecified
CPT/HCPCS: 36415; 80048; 80061

== ENCOUNTER 2022-03-18 10:37 | Observation (INO) | payer MEDICARE, OTHER, SELFPAY ==
[2022-03-18] VITALS (21 sets, daily range): BP systolic 110–138; BP diastolic 55–77; PULSE 62–180; RESP 12–27; TEMP 36.6–36.8; O2SAT 92–97; BMI 27.3
[2022-03-18] MEDS: dilTIAZem 5 MG/ML SDV 10 MG IV (10:57)
--- NOTE | 2022-03-18 10:57 | DI.RAD.S_ITS ---
PROCEDURE: XR CHEST 1V INDICATIONS: chest pain TECHNIQUE: One view of the chest was acquired. COMPARISON: [facility], CR, XR CHEST 1V, 07/24/2019, 0:36. FINDINGS: Surgical changes and devices: None. Lungs and pleura: Lungs are clear. No pleural effusions or pneumothorax. Mediastinum: Mediastinal contours appear normal. Heart size is normal. Bones and chest wall: No suspicious bony lesions. Overlying soft tissues appear unremarkable. IMPRESSION: No acute process. Dictated by: Dimas Obregon M.D. on 03/18/2022 at 11:30 Approved by: Dimas Obregon M.D. on 03/18/2022 at 11:31
[2022-03-18 11:09] LABS: Add Manual Diff / Slide Review NO; Basophils Absolute Auto 0 /uL (0-100); Basophils Percent Auto 0.3 % (0-2); Eosinophils Absolute Auto 100 /uL (0-450); Eosinophils Percent Auto 1.5 % (2-4); Hematocrit 38.7 % (36-46); Lymphocytes Absolute Auto 3100 /uL (1100-4500); Mean Corpuscular HGB Conc 33.6 % (30-36); Mean Corpuscular Hemoglobin 30.4 PG (26-34); Mean Corpuscular Volume 90.6 fL (80-100); Monocytes Absolute Auto 900 /uL (0-900); Neutrophils Absolute Auto 4700 /uL (1500-7000); Neutrophils Percent Auto 53.2 % (50-75); Platelet Count 209 X10^3/uL (150-400); Red Blood Cell Count 4.27 X10^6/uL (4.0-5.2); Red Cell Distribution Width 13.8 % (11.6-14.8); White Blood Cell Count 8.8 X10^3/uL (4.5-11.0)
[2022-03-18 11:17] LABS: INR 1.1 (0.9-1.3); Prothrombin Time 12.4 SECONDS (10.1-12.7)
[2022-03-18 11:19] LABS: Alanine Aminotransferase 124 IU/L (<35); Albumin 4.3 g/dL (3.5-5.0); Albumin Globulin Ratio 1.5 (1.0-2.8); Alkaline Phosphatase 69 U/L (38-126); Aspartate Aminotransferase 127 IU/L (14-36); BUN Creatinine Ratio 20.2 (6-22); Bilirubin Total 0.5 mg/dL (0.2-1.3); Blood Urea Nitrogen 18 mg/dL (7-17); Carbon Dioxide 28 mmol/L (22-32); Chloride 108 mmol/L (98-107); Creatine Kinase 147 U/L (30-135); Estimated Glomerular Filt Rate > 60 mL/min (>60); Globulin 2.9 g/dL (1.7-4.1); Glucose 122 mg/dL (80-110); HEMOLYSIS < 15 (0-50); Lipase 136 U/L (23-300); Potassium 3.9 mmol/L (3.4-5.1); Sodium 140 mmol/L (137-145); Total Protein 7.2 g/dL (6.3-8.2)
--- NOTE | 2022-03-18 11:24 | ED_ITS ---
HPI - Chest Pain General Chief Complaint: Chest Pain Stated Complaint: tight band around chest lightheaded thumping heart Time Seen by Provider: 03/18/22 11:01 History of Present Illness HPI narrative: Patient is a chanelle female who has history of hypertension, hyperlipidemia, anxiety presenting today with 3 days of heart pounding and shortness of breath. She has had some fullness in her abdomen some shortness of breath with exertion. She drove herself back from [place] last night to be evaluated today. She is found to be in SVT with a heart rate of once before. She denies any dizziness lightheadedness. Or fever. She has no prior history of SVT. She is followed by Dr. Clarke cardiology. She also states that she is grieving the loss of her very best friend. She is concerned that this may all be in her head. Related Data Home Medications Medication Instructions Recorded Confirmed venlafaxine 75 mg capsule,extended 75 mg PO BEDTIME #0 11/20/16 03/18/22 release 24 hr (Effexor XR) atorvastatin 40 mg tablet 40 mg PO BEDTIME 03/18/22 03/18/22 levothyroxine 75 mcg tablet 75 mcg PO DAILY 03/18/22 03/18/22 lisinopril 20 mg tablet 20 mg PO BEDTIME 03/18/22 03/18/22 loratadine 10 mg tablet 10 mg PO DAILY 03/18/22 03/18/22 Allergies Allergy/AdvReac Type Severity Reaction Status Date / Time CAT DANDER Allergy Unknown Uncoded 02/11/18 12:33 DUST Allergy Unknown Uncoded 02/11/18 12:33 lactose intolerant AdvReac Mild Abdominal Uncoded 08/25/19 08:28 pain and bloating Review of Systems Review of Systems Narrative: GENERAL: Denies chills, fatigue, malaise, fever, sweats, travel HEENT: Denies sinus pain, ear pain, sore throat, difficulty swallowing, neck pain RESPIRATORY: Denies dyspnea, cough, wheezing, hemoptysis, sputum. CARDIOVASCULAR: See HPI GASTROINTESTINAL: Denies nausea, vomiting, abdominal pain, diarrhea, constipation, melena. : Denies dysuria, frequency, incontinence, hematuria, urinary retention, flank pain. MUSCULOSKELETAL: Denies weakness, joint pain, or bony pain SKIN: No rash, no erythema, no pruritus NEUROLOGIC: Denies weakness, dizziness, headache, numbness, change in speech, confusion PSYCHIATRIC: No concerning psychosocial issues. 12 point review of systems is negative except for those stated above and HPI Patient History Medical History Anxiety Aortic aneurysm Arthritis Eczema Hyperlipidemia Hypertension Skin cancer Surgical History Status post delivery Status post delivery Status post hysterectomy Family History Brother Age: 69 Melanoma Father Hypertension High cholesterol Melanoma Social History household members: spouse Smoking Status: Never smoker alcohol intake: current Smoking Status: Never smoker alcohol intake frequency: a few times a month Substance Use Type: does not use Exam Initial Vital Signs Initial Vital Signs: Vital Signs Temperature 97.8 F 03/18/22 10:43 Pulse Rate 180 H 03/18/22 10:43 Respiratory Rate 16 03/18/22 10:43 Blood Pressure 116/62 03/18/22 10:43 Pulse Oximetry 97 03/18/22 10:43 GENERAL: Alert pleasant 77-year-old female HEENT: Head atraumatic,EOMI, pupils reactive, face symmetric, moist mucous membranes CARDIOVASCULAR: Tachycardic no murmurs RESPIRATORY: Breath sounds equal bilaterally, no wheezes rales or rhonchi. ABDOMEN: Soft, nontender. Normoactive bowel sounds all 4 quadrants. No guarding or rebound. EXTREMITIES: Normal range of motion, no clubbing or edema. Neurovascularly intact NEUROLOGICAL: Alert and oriented x4.Normal gait and speech. SKIN: Warm, dry, no laceration, no petechiae, no rashes or lesions. Course Orders Ordered: ED Orders 03/18/22 10:57 XR chest 1V Stat EKG-12 Lead Stat 03/18/22 10:58 BNP [NT-proBNP (BNP-Adult 18+)] Stat Complete Blood Count AUTO DIFF Stat Comprehensive Metabolic Panel Stat Lipase Stat Magnesium Stat Partial Thromboplastin Time Stat Prothrombin Time INR Stat Troponin & CK Cardiac Panel Stat 03/18/22 13:00 Trop I [Troponin I] Stat 03/18/22 13:45 COVID19 -Nasal RAPID/Pre-Proc Stat 03/18/22 13:51 EKG-12 Lead Stat Acetaminophen (Acetaminophen 325 Mg Tablet) 650 mg PO Q6HR [facility] Last Admin: 03/18/22 19:02 Dose: Not Given Documented by: HARI Aspirin (Aspirin Ec 81 Mg Tablet) 162 mg PO DAILY [facility] Calcium Carbonate (Calcium Carbonate 500 Mg Tab) 1,000 mg PO Q4HR PRN PRN Reason: Dyspepsia Famotidine (Famotidine 20 Mg Tablet) 40 mg PO BEDTIME RPEET Heparin Sodium/Dextrose (Heparin Drip) 25,000 unit in 500 mls @ 17.853 mls/hr IV CONT PREET; Protocol Last Titration: 03/18/22 17:40 Dose: 7.93 units/kg/hr, 11.8 mls/hr Documented by: Titration: 03/18/22 14:57 Dose: 12 units/kg/hr, 17.853 mls/hr Documented by: Admin: 03/18/22 14:31 Dose: 12 units/kg/hr, 17.853 mls/hr Documented by: SMITH Metoprolol Tartrate (Metoprolol Tartrate 5 Mg/5 Ml Inj) 5 mg IV Q6H PRN PRN Reason: HR>110 Morphine Sulfate (Morphine 2 Mg/Ml Inj) 2 mg IV Q4H PRN PRN Reason: Breakthrough pain only (8-10) Naloxone HCl (Naloxone 0.4 Mg/Ml Vial) 0.2 mg IV Q2MIN PRN PRN Reason: Opiate Reversal Ondansetron HCl (Ondansetron 4 Mg/2 Ml Inj) 4 mg IV Q8HR PRN PRN Reason: Nausea And Vomiting Sennosides (Sennosides 8.6 Mg Tablet) 17.2 mg PO BEDTIME [facility] Discontinued Medications Aspirin (Aspirin 81 Mg Chew Tab) 324 mg PO NOW ONE Stop: 03/18/22 13:52 Last Admin: 03/18/22 13:55 Dose: 324 mg Documented by: SMITH Diltiazem HCl (Diltiazem 5 Mg/Ml Sdv) 10 mg IV NOW ONE Stop: 03/18/22 11:15 Last Admin: 03/18/22 10:57 Dose: 10 mg Documented by: CALLY Famotidine (Famotidine 20 Mg Tablet) 20 mg PO BEDTIME PREET Furosemide (Furosemide 40 Mg/4 Ml Vial) 20 mg IV NOW ONE Stop: 03/18/22 11:50 Last Admin: 03/18/22 12:13 Dose: 20 mg Documented by: CALLY Heparin Sodium (Porcine) (Heparin 5,000 Unit/Ml Vial) 4,000 unit IV NOW ONE Stop: 03/18/22 14:12 Last Admin: 03/18/22 14:32 Dose: 4,000 unit Documented by: SMITH Vital Signs Vital signs: Vital Signs - 8 hr 03/18/22 11:15 03/18/22 11:30 03/18/22 12:00 Pulse Rate 62 65 64 Respiratory Rate 14 16 17 Blood Pressure 117/67 114/64 115/66 Pulse Oximetry 95 92 92 03/18/22 12:15 03/18/22 12:30 03/18/22 13:00 Pulse Rate 67 73 70 Respiratory Rate 20 21 Blood Pressure 114/62 113/60 119/70 Pulse Oximetry 94 93 95 03/18/22 13:15 03/18/22 13:30 03/18/22 13:48 Pulse Rate 69 67 70 Respiratory Rate 17 18 19 Blood Pressure 118/67 113/65 125/60 Pulse Oximetry 94 93 96 MDM - Chest Pain Lab Data Result diagrams: 03/18/22 10:58 03/18/22 10:58 Labs: Lab Results 03/18/22 03/18/22 03/18/22 Range/Units 10:58 10:58 10:58 WBC 8.8 (4.5-11.0) X10^3/uL RBC 4.27 (4.0-5.2) X10^6/uL Hgb 13.0 (12.0-16.0) g/dL Hct 38.7 (36-46) % MCV 90.6 (80-100) fL MCH 30.4 (26-34) PG MCHC 33.6 (30-36) % RDW 13.8 (11.6-14.8) % Plt Count 209 (150-400) X10^3/uL Neut % (Auto) 53.2 (50-75) % Lymph % (Auto) 35.0 (25-40) % [place] % (Auto) 10.0 (3-14) % Eos % (Auto) 1.5 L (2-4) % Baso % (Auto) 0.3 (0-2) % Neut # (Auto) 4700 (6850-3275) /uL Lymph # (Auto) 3100 (0816-0862) /uL [place] # (Auto) 900 (0-900) /uL Eos # (Auto) 100 (0-450) /uL Baso # (Auto) 0 (0-100) /uL PT 12.4 (10.1-12.7) SECONDS INR 1.1 (0.9-1.3) APTT (26.4-36.2) SECONDS Sodium 140 (137-145) mmol/L Potassium 3.9 (3.4-5.1) mmol/L Chloride 108 H (98-107) mmol/L Carbon Dioxide 28 (22-32) mmol/L BUN 18 H (7-17) mg/dL Creatinine 0.89 (0.52-1.04) mg/dL Estimated GFR > 60 (>60) mL/min BUN/Creatinine Ratio 20.2 (6-22) Glucose 122 H (80-110) mg/dL Calcium 9.0 (8.4-10.2) mg/dL Magnesium 2.0 (1.6-2.3) mg/dL Total Bilirubin 0.5 (0.2-1.3) mg/dL AST 127 H (14-36) IU/L ALT 124 H (<35) IU/L Alkaline Phosphatase 69 (38-126) U/L Total Creatine Kinase 147 H (30-135) U/L CK-MB (CK-2) 1.68 (<2.37) ng/mL CK-MB (CK-2) Rel Index 1.1 L (1.5-5.0) % Troponin I 0.075 H (0.01-0.034) ng/mL NT-Pro-B Natriuret Pep (<450) pg/mL Total Protein 7.2 (6.3-8.2) g/dL Albumin 4.3 (3.5-5.0) g/dL Globulin 2.9 (1.7-4.1) g/dL Albumin/Globulin Ratio 1.5 (1.0-2.8) Lipase 136 (23-300) U/L SARS-CoV-2 (PCR) (Negative) 03/18/22 03/18/22 03/18/22 Range/Units 10:58 10:58 13:00 WBC (4.5-11.0) X10^3/uL RBC (4.0-5.2) X10^6/uL Hgb (12.0-16.0) g/dL Hct (36-46) % MCV (80-100) fL MCH (26-34) PG MCHC (30-36) % RDW (11.6-14.8) % Plt Count (150-400) X10^3/uL Neut % (Auto) (50-75) % Lymph % (Auto) (25-40) % [place] % (Auto) (3-14) % Eos % (Auto) (2-4) % Baso % (Auto) (0-2) % Neut # (Auto) (3856-1689) /uL Lymph # (Auto) (0994-7521) /uL [place] # (Auto) (0-900) /uL Eos # (Auto) (0-450) /uL Baso # (Auto) (0-100) /uL PT (10.1-12.7) SECONDS INR (0.9-1.3) APTT 32 (26.4-36.2) SECONDS Sodium (137-145) mmol/L Potassium (3.4-5.1) mmol/L Chloride (98-107) mmol/L Carbon Dioxide (22-32) mmol/L BUN (7-17) mg/dL Creatinine (0.52-1.04) mg/dL Estimated GFR (>60) mL/min BUN/Creatinine Ratio (6-22) Glucose (80-110) mg/dL Calcium (8.4-10.2) mg/dL Magnesium (1.6-2.3) mg/dL Total Bilirubin (0.2-1.3) mg/dL AST (14-36) IU/L ALT (<35) IU/L Alkaline Phosphatase (38-126) U/L Total Creatine Kinase (30-135) U/L CK-MB (CK-2) (<2.37) ng/mL CK-MB (CK-2) Rel Index (1.5-5.0) % Troponin I 0.121 H* (0.01-0.034) ng/mL NT-Pro-B Natriuret Pep 2060 H (<450) pg/mL Total Protein (6.3-8.2) g/dL Albumin (3.5-5.0) g/dL Globulin (1.7-4.1) g/dL Albumin/Globulin Ratio (1.0-2.8) Lipase (23-300) U/L SARS-CoV-2 (PCR) (Negative) 03/18/22 Range/Units 13:45 WBC (4.5-11.0) X10^3/uL RBC (4.0-5.2) X10^6/uL Hgb (12.0-16.0) g/dL Hct (36-46) % MCV (80-100) fL MCH (26-34) PG MCHC (30-36) % RDW (11.6-14.8) % Plt Count (150-400) X10^3/uL Neut % (Auto) (50-75) % Lymph % (Auto) (25-40) % [place] % (Auto) (3-14) % Eos % (Auto) (2-4) % Baso % (Auto) (0-2) % Neut # (Auto) (0194-1677) /uL Lymph # (Auto) (4102-5102) /uL [place] # (Auto) (0-900) /uL Eos # (Auto) (0-450) /uL Baso # (Auto) (0-100) /uL PT (10.1-12.7) SECONDS INR (0.9-1.3) APTT (26.4-36.2) SECONDS Sodium (137-145) mmol/L Potassium (3.4-5.1) mmol/L Chloride (98-107) mmol/L Carbon Dioxide (22-32) mmol/L BUN (7-17) mg/dL Creatinine (0.52-1.04) mg/dL Estimated GFR (>60) mL/min BUN/Creatinine Ratio (6-22) Glucose (80-110) mg/dL Calcium (8.4-10.2) mg/dL Magnesium (1.6-2.3) mg/dL Total Bilirubin (0.2-1.3) mg/dL AST (14-36) IU/L ALT (<35) IU/L Alkaline Phosphatase (38-126) U/L Total Creatine Kinase (30-135) U/L CK-MB (CK-2) (<2.37) ng/mL CK-MB (CK-2) Rel Index (1.5-5.0) % Troponin I (0.01-0.034) ng/mL NT-Pro-B Natriuret Pep (<450) pg/mL Total Protein (6.3-8.2) g/dL Albumin (3.5-5.0) g/dL Globulin (1.7-4.1) g/dL Albumin/Globulin Ratio (1.0-2.8) Lipase (23-300) U/L SARS-CoV-2 (PCR) Negative (Negative) ECG Data Interpretation: EKG 1. SVT rate 77 EKG 2. Normal sinus rhythm rate 67 MS interval 188 QRS [address] depression noted in the lateral leads new from previous EKG in [address] depression and T-wave inversion in lateral leads no ST changes MDM Narrative Medical decision making narrative: Patient is found to be in SVT. She has likely been in SVT for at least the last 3 days. Troponin is indeterminate with BNP elevation likely secondary to ongoing tachycardia. Initially attempted a Valsalva maneuver however unsuccessful. She was given 10 mg of Cardizem and easily cardioverted. She is given dose of Lasix here in the ED she is responding well. 1415-Dr. Waterman cardiology updated patient's symptoms test results EKG changes positive troponins and recent SVT. At this time agrees with aspirin heparin echo and stress test. Transfer if needed. Changes may be from recent SVT. Discharge Plan Departure Patient Disposition: Admitted As Inpatient Clinical Impression: Sustained SVT, Non-ST elevation (NSTEMI) myocardial infarction Admit Date/Time: 03/18/22 14:02 Admit Provider: Michael Gonzalez
[2022-03-18 11:25] LABS: PTT Partial Thromboplastin Tim 32 SECONDS (26.4-36.2)
[2022-03-18 11:28] LABS: NT-proBNP (BNP-Adult 18+) 2060 pg/mL (<450)
[2022-03-18 11:31] LABS: Troponin I 0.075 ng/mL (0.01-0.034)
[2022-03-18 11:34] LABS: CKMB % Relative Index 1.1 % (1.5-5.0); Creatine Kinase MB 1.68 ng/mL (<2.37)
[2022-03-18] MEDS: FUROSEMIDE 40 MG/4 ML VIAL 20 MG IV (12:13)
[2022-03-18 13:35] LABS: Troponin I 0.121 ng/mL (0.01-0.034)
[2022-03-18] MEDS: ASPIRIN 81 MG CHEW TAB 324 MG PO (13:55)
[2022-03-18 14:04] LABS: COVID19 -Nasal RAPID Negative (Negative)
[2022-03-18] MEDS: HEPARIN DRIP 25,000 UNIT/500 ML IV.SOLN 17.853 UNIT IV (14:31)
[2022-03-18] MEDS: HEPARIN 5,000 UNIT/ML VIAL 4000 UNIT IV (14:32)
--- NOTE | 2022-03-18 15:31 | PC.NURSE ---
1510: Pt admitted to room 226 from ED via stretcher. A&O x4, denies complaints. Oriented to room and unit procedures. Breath sounds clear bilaterally, active bowel tones, VSS, skin intact, no edema noted. Bed locked and in low position, call light in reach.
--- NOTE | 2022-03-18 16:20 | P.HP_ITS ---
History of Present Illness History of Present Illness Date Patient Seen: 03/18/22 Chief complaint: tight band around chest lightheaded thumping heart Narrative: THIS IS A VERY PLEASANT 77-YEAR-OLD FEMALE WITH A PAST MEDICAL HISTORY SIGNIFICANT FOR HYPERTENSION, HYPERLIPIDEMIA, HYPOTHYROIDISM. PATIENT PRESENTED TO THE HOSPITAL REPORTING CHEST PALPITATIONS. DESPITE ONGOING FOR LAST FEW DAYS. SHE DENIES ANY PRIOR HISTORY OF MYOCARDIAL INFARCTION OR CVA. SHE DOES REPORT A HISTORY OF AORTIC REGURGITATION. PATIENT WAS SEEN IN THE ER WHERE HER HEART RATE WAS NOTED TO BE ABOVE 150. SHE WAS TREATED WITH CARDIZEM WITH GOOD RESULTS. ACCORDING TO THE ER PHYSICIAN, TROPONIN WAS ELEVATED ALSO ON HER INITIAL WORKUP / LABS. EKG IN THE ER ALSO APPEARS TO SHOW SOME ST DEPRESSION ER ATTENDING DID SPEAK TO CARDIOLOGY. RECOMMENDATION WAS FOR STARTING PATIENT ON HEPARIN DRIP AT THAT TIME. PATIENT MEANWHILE HAD NO OTHER SYMPTOMS. HE DENIES ANY CHEST PAIN. SHE ALSO DENIES ANY SHORTNESS OF BREATH. MILD DIFFUSE ON EXERTION DOING HER TACHYCARDIA WHICH HAS RESOLVED AT THIS TIME. DENIES ANY FEVER. NO CHILLS. SHE REPORTED ONLY CHANGES TO HER MEDICATIONS WERE LISINOPRIL AND STATIN WHICH HAVE BEEN DOUBLED OTHER NOTABLE FINDING IN THE ER WAS AN ELEVATED BNP. NO SIGNIFICANT ELECTROLYTE IMBALANCES APPRECIATED. KIDNEY FUNCTION AND LIVER FUNCTION ARE FAIRLY STABLE. Patient History Medical History Anxiety Aortic aneurysm Arthritis Eczema Hyperlipidemia Hypertension Skin cancer Surgical History Status post delivery Status post delivery Status post hysterectomy Family & Social History Family History Brother Age: 69 Melanoma Father Hypertension High cholesterol Melanoma Social History: household members spouse Prior Living Arrangements House Safety & Behavioral: Feels Safe in Current Yes Environment Been Physically Hurt or No Threatened By a Person Tobacco & Substance use: Smoking Status Never smoker alcohol intake current alcohol intake frequency a few times a month Substance Use Type does not use Meds Home Medications and Allergies Home Medications Medication Instructions Recorded Confirmed Type venlafaxine 75 mg capsule,extended 75 mg PO BEDTIME #0 11/20/16 03/18/22 History release 24 hr (Effexor XR) atorvastatin 40 mg tablet 40 mg PO BEDTIME 03/18/22 03/18/22 History levothyroxine 75 mcg tablet 75 mcg PO DAILY 03/18/22 03/18/22 History lisinopril 20 mg tablet 20 mg PO BEDTIME 03/18/22 03/18/22 History loratadine 10 mg tablet 10 mg PO DAILY 03/18/22 03/18/22 History Allergies Allergy/AdvReac Type Severity Reaction Status Date / Time CAT DANDER Allergy Unknown Uncoded 02/11/18 12:33 DUST Allergy Unknown Uncoded 02/11/18 12:33 lactose intolerant AdvReac Mild Abdominal Uncoded 08/25/19 08:28 pain and bloating Review of Systems Review of Systems Narrative: ALL SYSTEM REVIEWED. NEGATIVE UNLESS NOTED ABOVE IN HPI Exam Vital Signs (past 8 hours): - 03/18/22 10:43 03/18/22 10:50 03/18/22 10:58 Temperature 97.8 F Pulse Rate 180 H 175 H 73 Respiratory Rate 16 16 21 Blood Pressure 116/62 118/77 120/62 Pulse Oximetry 97 93 03/18/22 11:00 03/18/22 11:15 03/18/22 11:30 Temperature Pulse Rate 68 62 65 Respiratory Rate 18 14 16 Blood Pressure 112/55 L 117/67 114/64 Pulse Oximetry 93 95 92 03/18/22 12:00 03/18/22 12:15 03/18/22 12:30 Temperature Pulse Rate 64 67 73 Respiratory Rate 17 20 21 Blood Pressure 115/66 114/62 113/60 Pulse Oximetry 92 94 93 03/18/22 13:00 03/18/22 13:15 03/18/22 13:30 Temperature Pulse Rate 70 69 67 Respiratory Rate 17 18 Blood Pressure 119/70 118/67 113/65 Pulse Oximetry 95 94 93 03/18/22 13:48 03/18/22 15:00 Temperature 97.8 F Pulse Rate 70 68 Respiratory Rate 19 14 Blood Pressure 125/60 138/72 Pulse Oximetry 96 95 Oxygen Delivery Method Room Air Oxygen Flow Rate 0 Narrative Exam Narrative: NO ACUTE DISTRESS. PATIENT IS ALERT ORIENTED X3. VITAL SIGNS STABLE HEAD ATRAUMATIC NORMOCEPHALIC NECK : SUPPLE WITHOUT ADENOPATHY NO CAROTID BRUITS EYE: EOMI, PERRLA, NORMAL CONJUNCTIVA; NO JAUNDICE CHEST: REGULAR RATE. NO RUBS. PMI IS NON DISPLACED. NO MURMURS; NORMAL S1- S2 PULMONARY: DECREASED BS OVER THE BASES. MILD BIBASILAR CRACKLES NOTED; NO INCREASED DULLNESS TO PERCUSSION ABDOMEN: SOFT. NONTENDER. NONDISTENDED. BOWEL SOUNDS ARE PRESENT IN ALL 4 QUADRANTS. NO MASS. EXTREMITIES: NO EDEMA.. NO CYANOSIS CLUBBING NOTED. NEURO: CRANIAL NERVES 2-12 GROSSLY INTACT. NO FOCAL NEUROLOGICAL DEFICIT NOTED. MSK: NORMAL RANGE OF MOTION FOR AGE. NO JOINT EFFUSION. SKIN: NORMAL FOR ETHNICITY; NO ECCHYMOSIS. NO LESION. GOOD TURGOR.; NO RASHES : NORMAL EXTERNAL GENITALIA. PSYCH : APPROPRIATE MOOD AND AFFECT. ALERT AWAKE ORIENTED X3 Objective Labs Result Diagrams: 03/18/22 10:58 03/18/22 10:58 Labs: Laboratory Results - last 24 hr 03/18/22 03/18/22 03/18/22 10:58 10:58 10:58 WBC 8.8 RBC 4.27 Hgb 13.0 Hct 38.7 MCV 90.6 MCH 30.4 MCHC 33.6 RDW 13.8 Plt Count 209 Neut % (Auto) 53.2 Lymph % (Auto) 35.0 [place] % (Auto) 10.0 Eos % (Auto) 1.5 L Baso % (Auto) 0.3 Neut # (Auto) 4700 Lymph # (Auto) 3100 [place] # (Auto) 900 Eos # (Auto) 100 Baso # (Auto) 0 PT 12.4 INR 1.1 APTT Sodium 140 Potassium 3.9 Chloride 108 H Carbon Dioxide 28 BUN 18 H Creatinine 0.89 Estimated GFR > 60 BUN/Creatinine Ratio 20.2 Glucose 122 H Calcium 9.0 Magnesium 2.0 Total Bilirubin 0.5 AST 127 H ALT 124 H Alkaline Phosphatase 69 Total Creatine Kinase 147 H CK-MB (CK-2) 1.68 CK-MB (CK-2) Rel Index 1.1 L Troponin I 0.075 H NT-Pro-B Natriuret Pep Total Protein 7.2 Albumin 4.3 Globulin 2.9 Albumin/Globulin Ratio 1.5 Lipase 136 SARS-CoV-2 (PCR) 03/18/22 03/18/22 03/18/22 10:58 10:58 13:00 WBC RBC Hgb Hct MCV MCH MCHC RDW Plt Count Neut % (Auto) Lymph % (Auto) [place] % (Auto) Eos % (Auto) Baso % (Auto) Neut # (Auto) Lymph # (Auto) [place] # (Auto) Eos # (Auto) Baso # (Auto) PT INR APTT 32 Sodium Potassium Chloride Carbon Dioxide BUN Creatinine Estimated GFR BUN/Creatinine Ratio Glucose Calcium Magnesium Total Bilirubin AST ALT Alkaline Phosphatase Total Creatine Kinase CK-MB (CK-2) CK-MB (CK-2) Rel Index Troponin I 0.121 H* NT-Pro-B Natriuret Pep 2060 H Total Protein Albumin Globulin Albumin/Globulin Ratio Lipase SARS-CoV-2 (PCR) 03/18/22 13:45 WBC RBC Hgb Hct MCV MCH MCHC RDW Plt Count Neut % (Auto) Lymph % (Auto) [place] % (Auto) Eos % (Auto) Baso % (Auto) Neut # (Auto) Lymph # (Auto) [place] # (Auto) Eos # (Auto) Baso # (Auto) PT INR APTT Sodium Potassium Chloride Carbon Dioxide BUN Creatinine Estimated GFR BUN/Creatinine Ratio Glucose Calcium Magnesium Total Bilirubin AST ALT Alkaline Phosphatase Total Creatine Kinase CK-MB (CK-2) CK-MB (CK-2) Rel Index Troponin I NT-Pro-B Natriuret Pep Total Protein Albumin Globulin Albumin/Globulin Ratio Lipase SARS-CoV-2 (PCR) Negative Assessment & Plan Assessment & Plan narrative: IMPRESSION SVT. NEW ONSET. IN SINUS RHYTHM AT THIS TIME ELEVATED TROP. CONSIDER NON STEMI TYPE 2 SECONDARY TO CARDIAC STRAIN. R/O A CS HOWEVER DUE TO MULTIPLE COMORBIDITIES ELEVATED BNP. NONSPECIFIC ELEVATED LIVER ENZYME. CLEAR ASSOCIATED WITH STATIN. POSSIBLE AORTIC REGURG PER HISTORY HYPERLIPIDEMIA PER HISTORY HYPERTENSION PER HISTORY PLAN PATIENT CASE WAS REFERRED TO THE CARDIOLOGY ON-CALL BY THE ER PHYSICIAN RECOMMENDATION WAS TO START HEPARIN DRIP PER PROTOCOL MONITOR CLOSELY FOR ANY SIGN OF HEMORRHAGE WHILE ON ANTICOAGULANT THERAPY IN THE MEANWHILE WILL CONTINUE TO TREND TROPONIN OVER THE NEXT 12 TO 24 HOURS ECHOCARDIOGRAM WILL BE ORDERED FOR THE MORNING WILL ALSO ORDER LIPIDS TO BE REPEATED KEEP ON TELE AT ALL TIMES CONTINUE ASPIRIN DAILY CONSIDER PLAVIX WELL IF INDICATED REPEAT EKG IN THE MORNING CONSULT WITH THE CARDIOLOGY TEAM FOR RECOMMENDATIONS MIGHT NEED A STRESS TEST VERSUS LEFT HEART CATHETERIZATION SVT HAS RESOLVED HEART RATE REVOLVING AROUND THE UPPER 60S WILL ADD METOPROLOL NEEDED ONLY FOR NOW CONSIDER SCHEDULED METOPROLOL ONCE INDICATED WILL CHECK A TSH LEVEL IN THE MORNING REPEAT ALL LABS IN THE MORNING WELL GET A URINALYSIS FOR SAKE OF COMPLETENESS ADDITIONAL MANAGEMENT PER CLINICAL COURSE PROGNOSIS IS GUARDED Time Spent With Patient Critical Care time: I spent a total of [] minutes of critical care time on this patient's care today; this time is exclusive of procedural time. Quality VTE Deep Vein Thrombosis/Pulmonary Embolism Present on Admission: No
[2022-03-18 16:41] LABS: PTT Partial Thromboplastin Tim 165 SECONDS (26.4-36.2)
[2022-03-18 19:28] LABS: Add Manual Diff / Slide Review NO; Basophils Absolute Auto 0 /uL (0-100); Basophils Percent Auto 0.8 % (0-2); Eosinophils Absolute Auto 200 /uL (0-450); Eosinophils Percent Auto 2.8 % (2-4); Hematocrit 36.2 % (36-46); Hemoglobin 12.3 g/dL (12.0-16.0); Lymphocytes Absolute Auto 2300 /uL (1100-4500); Lymphocytes Percent Auto 41.1 % (25-40); Mean Corpuscular HGB Conc 33.9 % (30-36); Mean Corpuscular Hemoglobin 30.4 PG (26-34); Mean Corpuscular Volume 89.6 fL (80-100); Monocytes Absolute Auto 600 /uL (0-900); Monocytes Percent Auto 10.3 % (3-14); Neutrophils Absolute Auto 2600 /uL (1500-7000); Platelet Count 186 X10^3/uL (150-400); Red Blood Cell Count 4.04 X10^6/uL (4.0-5.2); Red Cell Distribution Width 13.9 % (11.6-14.8); White Blood Cell Count 5.7 X10^3/uL (4.5-11.0)
[2022-03-18 19:55] LABS: Alanine Aminotransferase 96 IU/L (<35); Albumin 3.8 g/dL (3.5-5.0); Albumin Globulin Ratio 1.4 (1.0-2.8); Alkaline Phosphatase 60 U/L (38-126); Aspartate Aminotransferase 82 IU/L (14-36); BUN Creatinine Ratio 23.1 (6-22); Bilirubin Total 0.6 mg/dL (0.2-1.3); Blood Urea Nitrogen 18 mg/dL (7-17); Calcium 8.9 mg/dL (8.4-10.2); Carbon Dioxide 29 mmol/L (22-32); Chloride 106 mmol/L (98-107); Estimated Glomerular Filt Rate > 60 mL/min (>60); Globulin 2.8 g/dL (1.7-4.1); Glucose 102 mg/dL (80-110); HEMOLYSIS < 15 (0-50); Potassium 3.7 mmol/L (3.4-5.1); Sodium 143 mmol/L (137-145); Total Protein 6.6 g/dL (6.3-8.2)
[2022-03-18 19:56] LABS: Cholesterol 154 mg/dL (140-199); HDL Cholesterol 52 mg/dL (40-60); LDL Cholesterol Calculated 49 mg/dL (<100); Triglycerides 266 mg/dL (35-150)
[2022-03-18 20:26] LABS: TSH w/ Reflex to FT4 3.53 uIU/mL (0.47-4.68)
[2022-03-18 20:45] LABS: Troponin I 0.211 ng/mL (0.01-0.034)
[2022-03-18] MEDS: FAMOTIDINE 20 MG TABLET 40 MG PO (21:15)
[2022-03-18] MEDS: SENNOSIDES 8.6 MG TABLET 17.2 MG PO (21:15)
[2022-03-18 22:23] LABS: PTT Partial Thromboplastin Tim 37 SECONDS (26.4-36.2)
[2022-03-18] MEDS: HEPARIN 5,000 UNIT/ML VIAL 3000 UNIT IV (22:54)
[2022-03-19 00:15] VITALS: BP 128/60; PULSE 79; RESP 18; TEMP 36.8; O2SAT 97
[2022-03-19 04:00] VITALS: BP 157/80; PULSE 73; RESP 18; TEMP 36.4; O2SAT 95
[2022-03-19 04:28] LABS: PTT Partial Thromboplastin Tim 59 SECONDS (26.4-36.2)
[2022-03-19 04:44] LABS: Troponin I 0.232 ng/mL (0.01-0.034)
--- NOTE | 2022-03-19 05:33 | PC.NURSE ---
Shift note: Patient was alert and orientedx4, obey commands, ambulatory, denies pain/discomfort, no cardiorespiratory distress noted. Vital signs are stable and within acceptable limits. On heparin drip, on heparin protocol (see separate protocol sheet), series PTT was done, latest PTT 59, heparin drip unchanged, next PTT will be in AM as per protocol, troponin also trending up with latest trop level was 0.232, patient denies any chest pain, Dr. Gaytan notified without any new orders. Patient was able to use toilet few times during the shift. Will continue to monitor.
--- NOTE | 2022-03-19 07:00 | DI.ECHO.S_ITS ---
[facility] +---------+ : : [address] : : : : [id number] : : : : Phone: [phone]+ Echocardiogram Report + :Name: KAUSHAL UQINN Study Date: 03/19/2022 Height: 65 in : :[facility] ReadingLocation: Weight: 166 lb : : Gender: Female BSA: 1.8 m2 : :: 1945 Age: 77 yrs BP: 129/76 mmHg: :Reason For Study: NSTEMI : :Ordering Physician: WANDA, : :AL Performed By: Harper Aponte : :Referring: AL MUÑOZ : + Interpretation Summary 1) Normal left ventricular thickness, size, and systolic function (EF 55-60%). 2) There are no obvious focal wall motion abnormalities noted but poor endocardial definition reduces the sensitivity for the detection of such. 3) Normal right ventricular size and function. 4) There is mild aortic regurgitation. 5) The ascending aorta is mildly enlarged at 4.3cm. 6) Compared to the Echo done 09/03/2019, no significant change. Procedure: A two-dimensional transthoracic echocardiogram with color flow and Doppler was performed. The study quality was technically adequate. Comparison is made with the echocardiogram of 09/03/2019. The patient was in sinus rhythm with heart rates between 58-72 bpm during the exam. Left Ventricle: The left ventricle is normal in size and wall thickness. The ejection fraction is estimated to be 55-60%. There are no obvious focal wall motion abnormalities noted but poor endocardial definition reduces the sensitivity for the detection of such. Diastolic parameters suggest a pseudonormalization pattern, consistent with probable elevated filling pressures. Right Ventricle: The right ventricle is normal in size and function. Atria: The left atrium is moderately dilated. Right atrial size is normal. There is no Doppler evidence for an interatrial shunt. Mitral Valve: There is mild mitral annular calcification. The mitral valve leaflets appear mildly thickened, but open well. There is mild mitral regurgitation. Aortic Valve: The aortic valve is trileaflet. The aortic valve opens well. There is no aortic valve stenosis. There is mild aortic regurgitation. Tricuspid Valve: The tricuspid valve is normal in structure and function. There is mild tricuspid regurgitation. Pulmonary artery pressures cannot be estimated because of the lack of a measurable TR jet velocity but the IVC suggests a CVP of around 8 mmHg. Pulmonic Valve: The pulmonic valve leaflets are thin and pliable; valve motion is normal. There is no pulmonic valvular regurgitation. Great Vessels: The aortic root is normal size. The ascending aorta is mildly enlarged. The IVC is dilated (diameter is greater than 2.1 cm) yet it collapses greater than 50% with a sniff. This suggests a right atrial pressure of 8 mm Hg. Pericardium/ Pleura There is no pericardial effusion. There is no pleural effusion. MMode/2D Measurements & Calculations LVIDd: 5.1 cm LVOT diam: 2.1 cm LVIDs: 3.4 cm Ao root diam: 3.9 cm FS: 33.5 % asc Aorta Diam: 4.3 cm IVSd: 0.94 cm Ao Arch Diam (Prox Trans): 3.1 cm LVPWd: 0.80 cm LV english. diameter/BSA (cm/m^2): 2.8 LV sys. diameter/BSA (cm/m^2): 1.9 LA A2 area: 24.7 cm2 RA long axis: 6.2 cm LA A4 area: 17.8 cm2 RA area: 18.6 cm2 LA length (vol): 5.3 cm RA vol: 47.2 ml LA vol: 70.7 ml RA : 25.9 ml/m2 LA vol index: 38.7 ml/m2 IVC diam: 2.3 cm RVD1 (basal): 3.9 cm RVD2 (mid): 3.2 cm TAPSE: 3.1 cm Doppler Measurements & Calculations Ao V2 max: 142.8 cm/sec LVOT Max Emanuel: 103.4 cm/sec Ao V2 mean: 94.4 cm/sec LV V1 max P.3 mmHg Ao max P.2 mmHg LV V1 VTI: 22.2 cm Ao mean P.1 mmHg VIANEY(I,D): 2.4 cm2 Ao V2 VTI: 30.7 cm VIANEY(V,D): 2.4 cm2 sev ratio: 0.72 VIANEY indexed to BSA (cm^2/m^2): 1.3 AI P1/2t: 740.5 msec AI dec slope: 199.8 cm/sec2 MV E max emanuel: 63.6 cm/sec PA V2 max: 75.0 cm/sec MV A max emanuel: 88.3 cm/sec PA V2 mean: 50.7 cm/sec MV E/A: 0.72 PA mean P.2 mmHg Med Peak E' Emanuel: 4.5 cm/sec PA pr(Accel): 31.0 mmHg E/E' med: 14.2 Lat Peak E' Emanuel: 3.4 cm/sec E/E' lat: 18.9 E/e' average: 16.5 MV dec time: 0.26 sec SV(LVOT): 74.4 ml Reading Physician:12:59 PM
[2022-03-19 08:00] VITALS: BP 133/78; PULSE 92; RESP 18; TEMP 36.6; O2SAT 96
--- NOTE | 2022-03-19 08:25 | PC.NURSE ---
Addendum entered by Gena Pizano R.N. 03/19/22 18:56: 1800: Pt has bed at [facility], critical care room 2004. Report called to DESTINY Grey. Pt updated, BLS transport to arrive between 1119-2135. Pt had take all belongings except her glasses and cell phone. Addendum entered by Gena Pizano R.N. 03/19/22 10:45: 1045: Pt troponin downtrending but still critical. Hospitalist aware, no new orders. Awaiting bed at outside facility. Addendum entered by Gena Pizano R.N. 03/19/22 08:58: 0855: Hospitalist spoke with cardiology at [facility], pt will transfer as soon as bed is available, possibly this afternoon. Pt remains with no s/s cardiac distress, telemetry unchanged. Denies complaints at present time. Original Note: 0730: Pt with increasing troponin. Hospitalist notified, attempting to arrange transfer to facility with cardiology services.
[2022-03-19] MEDS: ASPIRIN EC 81 MG TABLET 162 MG PO (09:12)
[2022-03-19] MEDS: LEVOTHYROXINE 75 MCG TABLET PO (09:12)
[2022-03-19 10:33] LABS: PTT Partial Thromboplastin Tim 45 SECONDS (26.4-36.2)
[2022-03-19 10:44] LABS: Troponin I 0.209 ng/mL (0.01-0.034)
[2022-03-19 12:00] VITALS: BP 129/76; PULSE 70; RESP 16; TEMP 36.6; O2SAT 97
--- NOTE | 2022-03-19 13:13 | CM.DANOTE ---
DCP: Received case. Checked EMR. Was able to meet with patient and introduce self and role. was at the beside. Was able to completed DCP assessment based upon information currently available. Pt is a 77 y.o. female that was admitted yesterday afternoon to the care of the hospitalist team. PCP: Ana Lilia Chavez Payor: Confirmed medicare/[facility] Patient arrived at [facility] via private vehicle. Patient was experiencing 3 days of heart pounding and SOB. Pt was also noting fullness in her abdomen. Pt was diagnosed with SVT. Her recruiting specialist is Dr. Clarke. She is also grieving the loss of her best friend. Met with patient and spouse in room. Pt is alert and orientated and appreciative of care in the hospital. Pt and spouse both reside here in [place] but also have a home in [place], [place], in which patient was driving back from. Pt is independent at her baseline. Pt states she is to be transferred to [facility] for a heart cath procedure. P: Pt is to be discharged to [facility] for higher level of care. Scarlett Willett RN/Statistical Engineer Discharge Planning/Care Management CM Discharge Assessment Start: 03/19/22 13:10 Freq: Status: Active Protocol: Document 03/19/22 13:10 HARRISON (Rec: 03/19/22 13:12 HARRISON [id number]) Discharge Planning Assessment Assigned Knuckle Bender Scarlett Willett RN/Statistical Engineer Advance Directives? Yes Advance Directives on File Yes History Provided By Patient,Medical Record Prior Living Arrangements House Household Members spouse Type of transporation used prior to Drives own vehicle admit Independent with ADL's Yes Is patient alert and oriented? Yes Caregiver for Another No Barriers to Discharge No Discharge Plan Transfer to Higher Level of Care Transportation Arrangement Ambulance. Pt transporting to [facility]. Referrals Initiated None needed Whiteboard Updated in Patient Room with Yes name and ext. # of Knuckle Bender Review Status In Process Next Review Type Continued Stay Review
--- NOTE | 2022-03-19 14:52 | P.DS_ITS ---
History of Present Illness History of Present Illness Chief complaint: tight band around chest lightheaded thumping heart Narrative: THIS IS A VERY PLEASANT 77-YEAR-OLD FEMALE WITH A PAST MEDICAL HISTORY SIGNIFIC ANT FOR HYPERTENSION, HYPERLIPIDEMIA, HYPOTHYROIDISM. PATIENT PRESENTED TO THE HOSPITAL REPORTING CHEST PALPITATIONS. DESPITE ONGOING FOR LAST FEW DAYS. SHE DENIES ANY PRIOR HISTORY OF MYOCARDIAL INFARCTION OR CVA. SHE DOES REPORT A HISTORY OF AORTIC REGURGITATION. PATIENT WAS SEEN IN THE ER WHERE HER HEART RATE WAS NOTED TO BE ABOVE 150. SHE WAS TREATED WITH CARDIZEM WITH GOOD RESULTS. ACCORDING TO THE ER PHYSICIAN, TROPONIN WAS ELEVATED ALSO ON HER INITIAL WORKUP / LABS. EKG IN THE ER ALSO APPEARS TO SHOW SOME ST DEPRESSION ER ATTENDING DID SPEAK TO CARDIOLOGY. RECOMMENDATION WAS FOR STARTING PATIENT ON HEPARIN DRIP AT THAT TIME. PATIENT MEANWHILE HAD NO OTHER SYMPTOMS. HE DENIES ANY CHEST PAIN. SHE ALSO DENIES ANY SHORTNESS OF BREATH. MILD DIFFUSE ON EXERTION DOING HER TACHYCARDIA WHICH HAS RESOLVED AT THIS TIME. DENIES ANY FEVER. NO CHILLS. SHE REPORTED ONLY CHANGES TO HER MEDICATIONS WERE LISINOPRIL AND STATIN WHICH HAVE BEEN DOUBLED OTHER NOTABLE FINDING IN THE ER WAS AN ELEVATED BNP. NO SIGNIFICANT ELECTROLYTE IMBALANCES APPRECIATED. KIDNEY FUNCTION AND LIVER FUNCTION ARE FAIRLY STABLE. Discharge Providers Provider Date of admission: 03/18/22 14:02 Discharge Date: 03/19/22 Primary care physician: Ana Lilia Carrera PA-C Discharge provider: Michael Gonzalez, Summary Hospital Course Discharge Diagnosis: SVT. NEW ONSET.? ? IN SINUS RHYTHM AT THIS TIME ?ELEVATED TROP.? CONSIDER NON STEMI; HAS MULTIPLE COMORBIDITIES ?ELEVATED BNP.? NONSPECIFIC ?ELEVATED LIVER ENZYME.? CLEAR ASSOCIATED WITH STATIN.? ?POSSIBLE AORTIC REGURG PER HISTORY ?HYPERLIPIDEMIA PER HISTORY ?HYPERTENSION PER HISTORY Hospital Course: THIS IS A VERY PLEASANT 77-YEAR-OLD FEMALE ADMITTED TO THE HOSPITAL WITH ELEVATED TROPONIN. PATIENT WAS NOTED IN THE ER WITH ELEVATED HEART RATE. REPORTEDLY HEART WILL ABOVE 150 ON PRESENTATION IN THE ER. PATIENT REPORTED SOME CHEST PALPITATION AT THAT TIME. SUBSEQUENTLY SVT WAS DIAGNOSE AND PATIENT GIVEN CARDIZEM. PATIENT HAS BEEN ON SINUS RHYTHM SINCE RECEIVING THE CARDIZEM. SHE IS NOT COMPLAINING OF ANY CHEST PAIN. NO CHEST PRESSURE. CHEST PALPITATIONS WHICH WERE PRESENT ON ARRIVAL HAS RESOLVED. ALSO ON ADMISSION, PATIENT LABS NOTABLE FOR ELEVATED TROPONIN LEVEL. KIDNEY FUNCTION AND LIVER FUNCTION WERE STABLE. PATIENT EKG APPEARS TO SHOW SOME IRREGULARITIES WELL. POSSIBLE MILD ST DEPRESSION APPRECIATED. PER CARDIOLOGY RECOMMENDATION, PATIENT WAS STARTED ON A HEPARIN DRIP. HER TROPONIN HAS BEEN TRENDED TROPONIN LEVEL INCREASE OVERNIGHT FROM 0.079 TO 0.2 WE REACHED OUT TO CARDIOLOGY AND RECOMMENDATION IS TO TRANSFER TO A TERTIARY FACILITY FOR HIGHER LEVEL OF CARE. PATIENT MAY NEED A LEFT HEART CATHETERIZATION. PATIENT HAS BEEN ACCEPTED AT [facility] TO BE ASSESSED BY CARDIOLOGY TEAM FOR FURTHER MANAGEMENT INDICATED Status at Discharge Cognitive/behavioral status at discharge: oriented Functional status at discharge: independent ambulation Overall status at discharge: patient is not back to baseline Time Spent with Patient Time spent: Greater than 30 minutes Exam Vital Signs (past 8 hours): - 03/19/22 08:00 03/19/22 12:00 Temperature 97.9 F 97.9 F Pulse Rate 92 H 70 Respiratory Rate 18 16 Blood Pressure 133/78 129/76 Pulse Oximetry 96 97 Oxygen Delivery Method Room Air Oxygen Flow Rate 0 Narrative Exam Narrative: NO ACUTE DISTRESS.? PATIENT IS ALERT ORIENTED X3. VITAL SIGNS STABLE HEAD ATRAUMATIC NORMOCEPHALIC NECK : SUPPLE WITHOUT ADENOPATHY NO CAROTID BRUITS EYE:? EOMI, PERRLA, NORMAL CONJUNCTIVA; NO JAUNDICE CHEST:? REGULAR RATE.? ? NO RUBS.? PMI IS NON DISPLACED.? NO MURMURS; NORMAL S1- S2 PULMONARY:? DECREASED BS OVER THE BASES.? MILD BIBASILAR CRACKLES NOTED; NO INCREASED DULLNESS TO PERCUSSION ABDOMEN:? SOFT.? NONTENDER.? NONDISTENDED.? BOWEL SOUNDS ARE PRESENT IN ALL 4 QUADRANTS.? NO MASS. EXTREMITIES: NO EDEMA..? NO CYANOSIS CLUBBING NOTED. NEURO:? CRANIAL NERVES 2-12 GROSSLY INTACT. NO FOCAL NEUROLOGICAL DEFICIT NOTED. MSK:? NORMAL RANGE OF MOTION FOR AGE.? NO JOINT EFFUSION. SKIN:? NORMAL FOR ETHNICITY; NO ECCHYMOSIS.? NO LESION. ? GOOD? TURGOR.; NO RASHES :? NORMAL EXTERNAL GENITALIA. PSYCH :? APPROPRIATE MOOD AND AFFECT.? ALERT AWAKE ORIENTED X3 Objective Labs Result Diagrams: 03/19/22 16:44 03/19/22 16:44 Labs: Laboratory Results - last 24 hr 03/18/22 03/18/22 03/18/22 15:15 19:19 19:19 WBC 5.7 RBC 4.04 Hgb 12.3 Hct 36.2 MCV 89.6 MCH 30.4 MCHC 33.9 RDW 13.9 Plt Count 186 Neut % (Auto) 45.0 L Lymph % (Auto) 41.1 H Granite % (Auto) 10.3 Eos % (Auto) 2.8 Baso % (Auto) 0.8 Neut # (Auto) 2600 Lymph # (Auto) 2300 Granite # (Auto) 600 Eos # (Auto) 200 Baso # (Auto) 0 APTT 165 H* D Sodium 143 Potassium 3.7 Chloride 106 Carbon Dioxide 29 BUN 18 H Creatinine 0.78 Estimated GFR > 60 BUN/Creatinine Ratio 23.1 H Glucose 102 Calcium 8.9 Magnesium 2.0 Total Bilirubin 0.6 AST 82 H ALT 96 H Alkaline Phosphatase 60 Troponin I Total Protein 6.6 Albumin 3.8 Globulin 2.8 Albumin/Globulin Ratio 1.4 Triglycerides Cholesterol LDL Cholesterol, Calc HDL Cholesterol TSH 03/18/22 03/18/22 03/18/22 19:19 19:19 19:19 WBC RBC Hgb Hct MCV MCH MCHC RDW Plt Count Neut % (Auto) Lymph % (Auto) Granite % (Auto) Eos % (Auto) Baso % (Auto) Neut # (Auto) Lymph # (Auto) Granite # (Auto) Eos # (Auto) Baso # (Auto) APTT Sodium Potassium Chloride Carbon Dioxide BUN Creatinine Estimated GFR BUN/Creatinine Ratio Glucose Calcium Magnesium Total Bilirubin AST ALT Alkaline Phosphatase Troponin I 0.211 H* Total Protein Albumin Globulin Albumin/Globulin Ratio Triglycerides 266 H Cholesterol 154 LDL Cholesterol, Calc 49 HDL Cholesterol 52 TSH 3.53 03/18/22 03/19/22 03/19/22 22:03 04:08 04:08 WBC RBC Hgb Hct MCV MCH MCHC RDW Plt Count Neut % (Auto) Lymph % (Auto) Granite % (Auto) Eos % (Auto) Baso % (Auto) Neut # (Auto) Lymph # (Auto) Granite # (Auto) Eos # (Auto) Baso # (Auto) APTT 37 H D 59 H D Sodium Potassium Chloride Carbon Dioxide BUN Creatinine Estimated GFR BUN/Creatinine Ratio Glucose Calcium Magnesium Total Bilirubin AST ALT Alkaline Phosphatase Troponin I 0.232 H* Total Protein Albumin Globulin Albumin/Globulin Ratio Triglycerides Cholesterol LDL Cholesterol, Calc HDL Cholesterol TSH 03/19/22 03/19/22 10:09 10:09 WBC RBC Hgb Hct MCV MCH MCHC RDW Plt Count Neut % (Auto) Lymph % (Auto) Granite % (Auto) Eos % (Auto) Baso % (Auto) Neut # (Auto) Lymph # (Auto) Granite # (Auto) Eos # (Auto) Baso # (Auto) APTT 45 H D Sodium Potassium Chloride Carbon Dioxide BUN Creatinine Estimated GFR BUN/Creatinine Ratio Glucose Calcium Magnesium Total Bilirubin AST ALT Alkaline Phosphatase Troponin I 0.209 H* Total Protein Albumin Globulin Albumin/Globulin Ratio Triglycerides Cholesterol LDL Cholesterol, Calc HDL Cholesterol TSH PFSH Medical History Anxiety Aortic aneurysm Arthritis Eczema Hyperlipidemia Hypertension Skin cancer Surgical History Status post delivery Status post delivery Status post hysterectomy Family History Brother Age: 69 Melanoma Father Hypertension High cholesterol Melanoma Social History household members: spouse Smoking Status: Never smoker alcohol intake: current Discharge Plan Discharge Plan Patient Disposition: [facility] Other facility: [facility] Discharge Data Primary Care Provider: Ana Lilia Carrera Attending Provider: Michael Gonzalez VTE Deep Vein Thrombosis/Pulmonary Embolism Present on Admission: No
[2022-03-19 16:00] VITALS: BP 139/71; PULSE 69; RESP 16; TEMP 36.4; O2SAT 96
[2022-03-19 16:56] LABS: Add Manual Diff / Slide Review NO; Basophils Absolute Auto 100 /uL (0-100); Basophils Percent Auto 2.5 % (0-2); Eosinophils Absolute Auto 200 /uL (0-450); Eosinophils Percent Auto 4.1 % (2-4); Hematocrit 36.8 % (36-46); Hemoglobin 12.4 g/dL (12.0-16.0); Lymphocytes Absolute Auto 1600 /uL (1100-4500); Lymphocytes Percent Auto 35.5 % (25-40); Mean Corpuscular HGB Conc 33.5 % (30-36); Mean Corpuscular Hemoglobin 30.4 PG (26-34); Mean Corpuscular Volume 90.6 fL (80-100); Monocytes Absolute Auto 400 /uL (0-900); Monocytes Percent Auto 9.4 % (3-14); Neutrophils Absolute Auto 2200 /uL (1500-7000); Neutrophils Percent Auto 48.5 % (50-75); Platelet Count 168 X10^3/uL (150-400); Red Blood Cell Count 4.07 X10^6/uL (4.0-5.2); Red Cell Distribution Width 13.8 % (11.6-14.8); White Blood Cell Count 4.6 X10^3/uL (4.5-11.0)
[2022-03-19 17:13] LABS: PTT Partial Thromboplastin Tim 42 SECONDS (26.4-36.2)
[2022-03-19 17:18] LABS: Alanine Aminotransferase 84 IU/L (<35); Albumin Globulin Ratio 1.3 (1.0-2.8); Alkaline Phosphatase 73 U/L (38-126); Aspartate Aminotransferase 58 IU/L (14-36); BUN Creatinine Ratio 13.2 (6-22); Bilirubin Total 0.7 mg/dL (0.2-1.3); Blood Urea Nitrogen 9 mg/dL (7-17); Calcium 8.4 mg/dL (8.4-10.2); Carbon Dioxide 27 mmol/L (22-32); Chloride 107 mmol/L (98-107); Estimated Glomerular Filt Rate > 60 mL/min (>60); Glucose 86 mg/dL (80-110); HEMOLYSIS < 15 (0-50); Magnesium 1.9 mg/dL (1.6-2.3); Potassium 3.9 mmol/L (3.4-5.1); Sodium 140 mmol/L (137-145)
--- NOTE | 2022-03-20 08:27 | CM.DPC ---
DCP Transfer Per MD, pt was accepted at [facility] with Cardiology and was transferred last night after SW shift. [place]
== END 2022-03-19 19:15 | disposition short-term general hospital (02) ==
LOC: ED 12:41 → AC 14:03 → ICU 14:31
PROVIDERS: Admitting Provider Hospitalist; Emergency Provider Emergency Medicine; Family Provider Ophthalmology; PCP Physician Assistant; Referring Provider Emergency Medicine; Visit Provider Hospitalist
DX: I47.1 Supraventricular tachycardia (principal); R77.8 Other specified abnormalities of plasma proteins; I10 Essential (primary) hypertension; E78.5 Hyperlipidemia, unspecified; F41.9 Anxiety disorder, unspecified; E03.9 Hypothyroidism, unspecified; Z20.822 Contact with and (suspected) exposure to COVID-19
CPT/HCPCS: 36415; 71045; 80053; 80061; 82550; 82553; 83690; 83735; 83880; 84443; 84484; 85025; 85610; 85730; 87635; 93005; 93010; 93306; 96365; 96366; 96375; 96376; 99284; C9803; G0378; A9270; J1644; J1940

== ENCOUNTER → 2022-07-23 07:33 | Outpatient (CLI) | payer MEDICARE, OTHER, SELFPAY ==
[2022-03-18 14:09] VITALS: BMI 27.3
[2022-07-23 09:25] LABS: Alanine Aminotransferase 28 IU/L (<35); BUN Creatinine Ratio 21.8 (6-22); Blood Urea Nitrogen 12 mg/dL (7-17); Calcium 8.7 mg/dL (8.4-10.2); Carbon Dioxide 29 mmol/L (22-32); Chloride 109 mmol/L (98-107); Cholesterol 140 mg/dL (140-199); Estimated Glomerular Filt Rate > 60 mL/min (>60); Glucose 92 mg/dL (80-110); HDL Cholesterol 42 mg/dL (40-60); HEMOLYSIS < 15 (0-50); LDL Cholesterol Calculated 70 mg/dL (<100); Potassium 3.7 mmol/L (3.4-5.1); Sodium 143 mmol/L (137-145); Triglycerides 138 mg/dL (35-150)
== END ==
PROVIDERS: Family Provider Ophthalmology; PCP Physician Assistant; Referring Provider Internal Medicine Interventional Cardiology; Visit Provider Internal Medicine Interventional Cardiology
DX: I10 Essential (primary) hypertension (principal); E78.5 Hyperlipidemia, unspecified
CPT/HCPCS: 36415; 80048; 80061; 84460

== ENCOUNTER → 2022-12-06 07:50 | Outpatient (CLI) | payer MEDICARE, OTHER, SELFPAY ==
[2022-03-18 14:09] VITALS: BMI 27.3
[2022-12-06 09:35] LABS: BUN Creatinine Ratio 20.3 (6-22); Blood Urea Nitrogen 13 mg/dL (7-17); Calcium 9.1 mg/dL (8.4-10.2); Carbon Dioxide 30 mmol/L (22-32); Chloride 104 mmol/L (98-107); Cholesterol 227 mg/dL (140-199); Estimated Glomerular Filt Rate > 60 mL/min (>60); Glucose 83 mg/dL (80-110); HDL Cholesterol 46 mg/dL (40-60); HEMOLYSIS < 15 (0-50); LDL Cholesterol Calculated 147 mg/dL (<100); Sodium 142 mmol/L (137-145); Triglycerides 168 mg/dL (35-150)
== END ==
PROVIDERS: Family Provider Ophthalmology; PCP Physician Assistant; Referring Provider Internal Medicine Interventional Cardiology; Visit Provider Internal Medicine Interventional Cardiology
DX: I10 Essential (primary) hypertension (principal); E78.2 Mixed hyperlipidemia
CPT/HCPCS: 36415; 80048; 80061

== ENCOUNTER → 2024-06-26 09:07 | Outpatient (CLI) | payer MEDICARE, OTHER, SELFPAY ==
[2022-03-18 14:09] VITALS: BMI 27.3
[2024-06-26 10:48] LABS: Alanine Aminotransferase 25 IU/L (<35); Albumin 4.1 g/dL (3.5-5.0); Albumin Globulin Ratio 1.9 (1.0-2.8); Alkaline Phosphatase 58 U/L (38-126); Aspartate Aminotransferase 28 IU/L (14-36); BUN Creatinine Ratio 26.8 (6-22); Bilirubin Total 0.4 mg/dL (0.2-1.3); Blood Urea Nitrogen 15 mg/dL (7-17); Calcium 8.8 mg/dL (8.4-10.2); Carbon Dioxide 24 mmol/L (22-32); Chloride 109 mmol/L (98-107); Cholesterol 155 mg/dL (140-199); Estimated Glomerular Filt Rate > 60 mL/min (>60); Globulin 2.2 g/dL (1.7-4.1); Glucose 95 mg/dL (80-110); HDL Cholesterol 55 mg/dL (40-60); HEMOLYSIS < 15 (0-50); LDL Cholesterol Calculated 85 mg/dL (<100); Sodium 143 mmol/L (137-145); Total Protein 6.3 g/dL (6.3-8.2); Triglycerides 77 mg/dL (35-150)
== END ==
PROVIDERS: Family Provider Ophthalmology; PCP Physician Assistant; Referring Provider Internal Medicine Cardiovascular Disease; Visit Provider Internal Medicine Cardiovascular Disease
DX: I25.10 Atherosclerotic heart disease of native coronary artery without angina pectoris (principal); I10 Essential (primary) hypertension
CPT/HCPCS: 36415; 80053; 80061

== ENCOUNTER 2025-06-07 11:59 | Emergency (ER) | payer MEDICARE, OTHER, SELFPAY ==
[2022-03-18 14:09] VITALS: BMI 27.3
[2025-06-07] VITALS (9 sets, daily range): BP systolic 125–153; BP diastolic 59–70; PULSE 60–78; RESP 13–24; TEMP 37.4; O2SAT 91–95; BMI 27.8
--- NOTE | 2025-06-07 12:14 | DI.CT.S_ITS ---
9PROCEDURE: CT HEAD/BRAIN WO CON INDICATIONS: head trauma TECHNIQUE: Noncontrast 4.5 mm thick angled axial sections acquired from the foramen magnum to the vertex, with coronal and sagittal reformats. For radiation dose reduction, the following was used: automated exposure control, adjustment of mA and/or kV according to patient size. COMPARISON: None. FINDINGS: Image quality: Diagnostic. CSF spaces: Basal cisterns are patent. No extra-axial fluid collections. The ventricles are symmetric in size and shape. Brain: No intracranial bleeds or mass effect. There is cerebral volume loss, with resultant ventricular and sulcal prominence. There are periventricular and deep white matter chronic small vessel ischemic changes. There is intracranial internal carotid artery atherosclerosis. Skull and face: Calvarium and visualized facial bones appear intact, without suspicious lesions. Sinuses: Visualized sinuses and mastoids are clear. IMPRESSION: No acute intracranial pathology. Approved by: Loulou Kelsey M.D.,Ph.D. on 06/07/2025 at 12:33
--- NOTE | 2025-06-07 12:14 | DI.CT.S_ITS ---
PROCEDURE: CT CERVICAL SPINE WO CON INDICATIONS: neck trauma TECHNIQUE: Noncontrast 3 mm thick sections acquired from the skull base to the T4 level. Sagittal and coronal reformats were then constructed. For radiation dose reduction, the following was used: automated exposure control, adjustment of mA and/or kV according to patient size. COMPARISON: None. FINDINGS: Image quality: Diagnostic. Bones: No fractures or dislocations. Visualized superior ribs are intact. Soft tissues: Prevertebral soft tissues are normal in thickness. No paravertebral hematomas. No apical pneumothoraces. IMPRESSION: No acute displaced fracture or traumatic subluxation. Approved by: Loulou Kelsey M.D.,Ph.D. on 06/07/2025 at 12:35
--- NOTE | 2025-06-07 12:22 | EKG_ITS ---
[place] [id number] [place] [id number] Test Date: 2025-06-07 Pat Name: Danelle Grossman Department: Room: Gender: Female [employer]: MARLEE : 1945 Requested By: Order Number: [id number] Reading MD: Cody Acharya Measurements Intervals Loa Rate: 76 P: 25 IA: 210 QRS: -5 QRSD: 84 T: 30 QT: 390 QTc: 438 Interpretive Statements Sinus rhythm with 1st degree AV block Low voltage QRS Cannot rule out Anterior infarct , age undetermined Electronically Signed On 06-11-2025 9:11:54 PDT by Cody Acharya
--- NOTE | 2025-06-07 12:30 | ED.FALL ---
HPI - Fall General Chief Complaint: Trauma Stated Complaint: Fell, Rt side head bleeding, headache Lt hand pain Time Seen by Provider: 06/07/25 12:14 Source: patient Mode of arrival: Ambulatory History of Present Illness HPI Narrative: This is a 80-year-old female who arrives by ambulance as a modified trauma. Patient reportedly tripped on pavement and fell striking the right side of her head. Loss of consciousness. She does not have a severe headache. No nausea or vomiting no amnesia. He denies any focal numbness or weakness, also says that her left hand is a little bit sore. He is not taking any blood thinners, she states that she was at her usual state of health and feeling well prior to the fall. Related Data Home Medications ?Medication ?Instructions ?Recorded ?Confirmed venlafaxine 75 mg capsule,extended 75 mg PO BEDTIME ##0 11/20/16 03/18/22 release 24 hr (Effexor XR) atorvastatin 40 mg tablet 40 mg PO BEDTIME 03/18/22 03/18/22 levothyroxine 75 mcg tablet 75 mcg PO DAILY 03/18/22 03/18/22 lisinopril 20 mg tablet 20 mg PO BEDTIME 03/18/22 03/18/22 loratadine 10 mg tablet 10 mg PO DAILY 03/18/22 03/18/22 Allergies Allergy/AdvReac Type Severity Reaction Status Date / Time CAT DANDER Allergy Unknown Uncoded 06/07/25 12:17 DUST Allergy Unknown Uncoded 06/07/25 12:17 lactose intolerant AdvReac Mild Abdominal Uncoded 06/07/25 12:17 pain and bloating Patient History Medical History Anxiety Aortic aneurysm Arthritis Eczema Hyperlipidemia Hypertension Skin cancer Surgical History Status post delivery Status post delivery Status post hysterectomy Family History Brother Age: 69 Melanoma Father Hypertension High cholesterol Melanoma Social History household members: spouse Smoking Status: Never smoker alcohol intake: current Smoking Status: Never smoker alcohol intake frequency: a few times a month Exam Initial Vital Signs Initial Vital Signs: Vital Signs Temperature 99.4 F 06/07/25 12:05 Pulse Rate 78 06/07/25 12:05 Respiratory Rate 20 06/07/25 12:05 Blood Pressure 153/63 H 06/07/25 12:05 Pulse Oximetry 92 06/07/25 12:05 Oxygen Delivery Method Room Air 06/07/25 12:05 vital signs are reviewed Const General: cooperative and No acute distress [facility] Other: Laceration to the right eyebrow.. 4 cm total. Bleeding is well controlled. No nasal deviation, nose is nontender. No malocclusion. Eyes Pupils: PERRL EOM: EOM intact bilaterally Neck Neck: normal visual inspection, supple and No JVD Chest Chest: normal inspection of the chest Resp Effort & Inspection: normal respiratory effort and able to speak in complete sentences Back/Spine/Pelvis Other: No tenderness over the cervical thoracic or lumbar spine Skin General: warm Neuro General: patient alert and patient oriented x3 Extrem Other: Full active range of motion of the left wrist and hand. No focal tenderness of the left wrist or hand Procedures Laceration Repair Laceration 1: Site: face (Right eyebrow) Size (cm): 4 Depth: simple, single layer Local Anesthetic: lidocaine 1% and with epi Skin layer closed with: nylon Skin layer suture size: 5-0 Technique: simple, interrupted Course Orders Ordered: ED Orders 06/07/25 12:14 CT cervical spine wo con Stat CT head/brain wo con Stat Discontinued Medications Acetaminophen (Acetaminophen 325 Mg Tablet) 650 mg PO NOW ONE Stop: 06/07/25 12:31 Last Admin: 06/07/25 12:50 Dose: 650 mg Documented By: AVERY Vital Signs Vital signs: Vital Signs - 8 hr 06/07/25 12:05 06/07/25 12:25 06/07/25 12:25 Temperature 99.4 F Pulse Rate 78 73 Respiratory Rate 20 24 Blood Pressure 153/63 H 125/59 L Pulse Oximetry 92 91 Oxygen Delivery Method Room Air 06/07/25 12:30 06/07/25 12:30 Temperature Pulse Rate 71 Respiratory Rate 21 Blood Pressure 130/63 Pulse Oximetry 94 Oxygen Delivery Method MDM - Fall ECG Data Attestation: I personally reviewed and interpreted this ECG as follows: (Normal sinus rhythm at [address] segment changes) MDM Narrative Medical decision making narrative: 80-year-old female with a ground level fall and resulting head injury and this is eyebrow laceration. Mental status is intact, no midline tenderness of the cervical spine or other neurologic abnormalities. CT head is negative, he has re-sutured patient is discharged to home Discharge Plan Departure Patient Disposition: Home Clinical Impression: Fall Qualifiers: Encounter type: initial encounter Qualified Code(s): W19.XXXA - Unspecified fall, initial encounter Head injury Qualifiers: Encounter type: initial encounter Qualified Code(s): S09.90XA - Unspecified injury of head, initial encounter Face lacerations Qualifiers: Encounter type: initial encounter Qualified Code(s): S01.81XA - Laceration without foreign body of other part of head, initial encounter Activity Restrictions/Additional Instructions: Today, we saw you for a fall with an associated facial laceration. I placed 2 sutures in the laceration, these need to be removed in 5 days, this can be done at a urgent care clinic if you are not in the area, otherwise it can be done here or in urgent Care. While the stitches are written, do not submerge her head and watery it is okay to shower 12 hours after the stitches were placed. Apply antibiotic ointment and change the dressing daily. No significant head injury was seen on CT scan, however if you develop nausea vomiting, increasing headache or unsteadiness return to the emergency department as these could be signs of delayed head bleeding. It is okay to use Tylenol as needed for mild pain. Prescriptions: No Action venlafaxine [Effexor XR] 75 MG capsule,extended release 24hr 75 mg PO BEDTIME Qty: 0 atorvastatin 40 mg Tablet 40 mg PO BEDTIME lisinopril 20 mg Tablet 20 mg PO BEDTIME levothyroxine 75 mcg Tablet 75 mcg PO DAILY loratadine 10 mg Tablet 10 mg PO DAILY Referrals: Ana Lilia Carrera PA-C [Primary Care Provider, Medical] Stand Alone Forms: Patient Portal/API
[2025-06-07] MEDS: ACETAMINOPHEN 325 MG TABLET 650 MG PO (12:50)
[2025-06-07] MEDS: BACITRACIN OINT 0.9 GM PCKT 1 APPLIC TOP (15:49)
--- NOTE | 2025-06-07 15:58 | PC.NURSE ---
Wound irrigated & cleaned, bacitracin and bandage.
== END 2025-06-07 16:04 | disposition home or self-care (01) ==
PROVIDERS: Emergency Provider Emergency Medicine; Family Provider Ophthalmology; PCP Physician Assistant
DX: S01.81XA Laceration without foreign body of other part of head, initial encounter (principal); S09.90XA Unspecified injury of head, initial encounter; W01.0XXA Fall on same level from slipping, tripping and stumbling without subsequent striking against object, initial encounter
CPT/HCPCS: 12013; 70450; 72125; 93005; 99284